=== PATIENT | male | born 1950 | race Caucasian/White ===

== ENCOUNTER → 2016-07-01 | Outpatient (CLI) | payer MEDICARE ==
[2016-07-01 15:01] LABS: RBC, Body Fluid 272 /uL; Synovial Crystal Source Left Knee
== END | disposition home or self-care (01) ==
LOC: LABWHC1 12:21
PROVIDERS: ATTEND Orthopaedic Surgery
DX: M25.562 Pain in left knee (principal); M17.12 Unilateral primary osteoarthritis, left knee
CPT/HCPCS: 89050; 89060

== ENCOUNTER 2017-06-23 12:24 | Day surgery (SDC) | payer MEDICARE ==
[2017-06-19 08:52] VITALS: BMI 45.0
[~2017-06-23 12:24] MED LIST: LACTATED RINGERS 1,000 ML IV SCH; LIDOCAINE 1% 20 ML VIAL (10MG/ML) FOR IV START INTRADERMA PRN
[2017-06-23] MEDS: PHENYLEPHRINE 10% OPHTH DROPS 5 ML BTL OP ONE ×3 (13:52→13:58)
[2017-06-23] MEDS: CYCLOPENTOLATE 1% OPHTH SOLN 2 ML BTL OP ONE ×3 (14:01→14:07)
[2017-06-23 14:06] VITALS: TEMP 97.6
[2017-06-23] MEDS ORDERED: SODIUM CHLORIDE 0.9% 500 ML IV ONE ×2 (14:06→14:49)
[2017-06-23] MEDS: FLURBIPROFEN 0.03% OPHTH DROPS 2.5 ML BTL OP ONE ×3 (14:10→14:16)
[2017-06-23 14:35] LABS: Glucose,Whole Blood 160 mg/dL (75-99)
[2017-06-23] MEDS ORDERED: LIDOCAINE 1% INJ 10MG/ML (20 ML MDV) ONE (14:49)
[2017-06-23] MEDS ORDERED: PROPOFOL 10 MG/ML 20 ML VIAL IV ONE (14:49)
[2017-06-23] MEDS ORDERED: EPINEPHrine (PF) 0.5 ML in BALANCED SALT IRRIG SOLN COMB2 500 ML IRRIGATION ONE (14:53)
[2017-06-23] MEDS ORDERED: BALANCED SALT IRRIG SOLN COMB2 15 ML IRRIG.SOLN INTRAOCULA ONE (14:58)
[2017-06-23] MEDS ORDERED: HYALURONATE SODIUM INTRAOCULAR 1 EACH SYRINGE (10MG/ML) INTRAOCULA ONE (14:58)
[2017-06-23] MEDS ORDERED: NEOMYCIN-POLYMYXIN-DEXAMETH OINT 3.5 GM TUBE RIGHT EYE ONE (14:58)
--- NOTE | 2017-06-23 15:23 | P.OP ---
Date of Procedure: 06/23/17 Procedure(s) Performed: PREOPERATIVE DIAGNOSIS: Cataract and glaucoma, right eye. POSTOPERATIVE DIAGNOSIS: Cataract and glaucoma, right eye. OPERATION: Phacoemulsification cataract, lens implant, iStent placement, right eye. DESCRIPTION OF PROCEDURE: The patient was taken to the preoperative holding area. Intravenous Propofol was given so as to bring about adequate sedation. The following mixture was given for local anesthesia: 5 mL of 2% lidocaine, 5 mL of 0.75% Marcaine, and 1 mL of Wydase. Approximately 4 mL was injected in the retrobulbar space of the surgical eye. Additional 1 mL was then directed to the temporal area of the surgical eye. This was performed to allow adequate neurological block of the facial muscles. The patient was revived and then taken into the operative room. The patient was prepped and draped in the usual sterile manner for the operative eye. A lid speculum was put into position. The conjunctiva was resected back from the limbus in the 12 o'clock position. Bleeding was controlled with electrocautery. A #69 blade was then used and a half-thickness scleral incision approximately 1-mm posterior to the limbus was made on bare sclera. This was shelved in the clear cornea using a crescent knife. Next a 15-degree blade was used to make a stab incision at the 3 o' clock position at the corneolimbal interface. Keratome blade was then used and the superior wound was extended into the anterior chamber. Viscoelastic was injected into the anterior chamber and to maintain its form. An iStent was placed in the inferior trabecular meshwork using a hand held gonioprism for guidance. Next, a cystotome was used and a continuous anterior capsulotomy was made without difficulty. Hydrodissection using a blunt cannula and BSS was performed. Phaco probe was then employed and a groove extending from 12 to 6 o' clock in the lens was created. A Albaro wand was used through the stab incision so as to perform a divide and conquer technique. Next an irrigation aspiration probe was utilized and any residual cortex was removed from the eye. Again, viscoelastic was injected into the anterior chamber. An [place] toric posterior chamber lens implant was placed in the cartridge and injected into the anterior chamber without difficulty. The Sinskey hook was utilized to spin the lens into position and this was again performed without any difficulty. The irrigation and aspiration probe was again employed and any residual viscoelastic was removed from the eye. Then BSS was injected into the limbal stab incision and the anterior chamber re-inflated. The conjunctiva was reapproximated using electrocautery. One drop of 0.25% Timoptic was placed over the corneal along with TobraDex ophthalmic ointment. Two sterile patches and a Mike eye shield were taped into position. The patient was transported to the recovery room in stable condition. Pathology: none sent Condition: stable Disposition: same day
[2017-06-23 15:28] LABS: Glucose,Whole Blood 146 mg/dL (75-99)
[2017-06-23 15:32] VITALS: RESP 18
[2017-06-23 15:55] VITALS: BP 153/64; PULSE 91
[2017-06-23] MEDS ORDERED: TIMOLOL 0.5% OPHTH DROPS 5 ML BTL OP ONE (23:00)
[2017-06-23] MEDS ORDERED: GENTAMICIN/PREDNISOL AC OPHTH OINT 3.5GM OPHTHALMIC ONE (23:00)
[2017-06-23] MEDS ORDERED: BUPIVACAINE (PF) 0.75% 5 ML, HYALURONIDASE, HUMAN RECOMB 150 UNIT, LIDOCAINE 2% (PF) 10... MISCELLANE ONE ×3 (23:00)
== END 2017-06-23 16:01 | disposition home or self-care (01) ==
LOC: OR 12:24
PROVIDERS: ATTEND Ophthalmology
DX: E11.36 Type 2 diabetes mellitus with diabetic cataract (principal); H40.059 Ocular hypertension, unspecified eye; H04.129 Dry eye syndrome of unspecified lacrimal gland; I13.2 Hypertensive heart and chronic kidney disease with heart failure and with stage 5 chronic kidney disease, or end stage renal disease; E11.22 Type 2 diabetes mellitus with diabetic chronic kidney disease; N18.6 End stage renal disease; I50.9 Heart failure, unspecified; Z99.2 Dependence on renal dialysis; Z79.4 Long term (current) use of insulin; Z96.41 Presence of insulin pump (external) (internal); I48.91 Unspecified atrial fibrillation; Z79.01 Long term (current) use of anticoagulants; E78.5 Hyperlipidemia, unspecified; I25.2 Old myocardial infarction; N40.0 Benign prostatic hyperplasia without lower urinary tract symptoms; G47.33 Obstructive sleep apnea (adult) (pediatric); Z99.89 Dependence on other enabling machines and devices; I49.9 Cardiac arrhythmia, unspecified; Z79.02 Long term (current) use of antithrombotics/antiplatelets; Z79.899 Other long term (current) drug therapy; Z88.5 Allergy status to narcotic agent; Z88.0 Allergy status to penicillin; Z88.8 Allergy status to other drugs, medicaments and biological substances
CPT/HCPCS: 66984; 66183; V2787; C1780; C1783; J3470; J2001 ×2; J0171; J2704

== ENCOUNTER 2018-11-21 17:50 | Emergency (ER) | payer MEDICARE, OTHER ==
[2018-11-21 18:21] VITALS: BP 127/73; PULSE 93; RESP 18; TEMP 98.1
[2018-11-21] MEDS ORDERED: PANTOPRAZOLE 40 MG/10 ML VIAL IVP STA (19:18)
[2018-11-21 19:26] LABS: Basophils # (A) 0.3 k/uL (0-0.2); Basophils % (A) 2 %; Eosinophils # (A) 0.4 k/uL (0-0.7); Eosinophils % (A) 4 %; HCT 35.8 % (39.0-53.0); HGB 11.8 gm/dL (13.0-17.5); Lymphocytes # (A) 1.5 k/uL (1.0-4.8); Lymphocytes % (A) 12 %; MCH 31.9 pg (25.0-35.0); MCV 96.6 fL (80.0-100.0); Mean Platelet Volume 8.3; Monocytes # (A) 0.6 k/uL (0-1.0); Monocytes % (A) 5 %; Neutrophils # (A) 9.1 k/uL (1.3-7.7); Neutrophils % (A) 75 %; Platelet Count 224 k/uL (150-450); RBC 3.71 m/uL (4.30-5.90); WBC 12.1 k/uL (3.8-10.6)
[2018-11-21 19:37] LABS: Albumin 3.8 g/dL (3.5-5.0); Calcium 8.5 mg/dL (8.4-10.2); Potassium 4.2 mmol/L (3.5-5.1); Total Bilirubin 0.4 mg/dL (0.2-1.3)
[2018-11-21 19:43] LABS: INR 1.1 (<1.2); Partial Thromboplastin Time 27.8 sec (22.0-30.0); Prothrombin Time 11.9 sec (9.0-12.0)
--- NOTE | 2018-11-21 22:37 | ED ---
General Adult HPI - General Chief complaint: GI Bleed Stated complaint: TARRY STOOL, VOMITING BLACK, ABDOMINAL PAIN Time Seen by Provider: 11/21/18 18:37 Source: patient, family Mode of arrival: wheelchair Limitations: no limitations - History of Present Illness Initial comments: 68-year-old male patient with past medical history significant for congestive heart failure to department today for evaluation of dark tarry stools and vomiting. Patient states the last 4-5 days he has noticed dark colored stools. States that he did have a episode of vomiting which could've been coffee ground. He denies any gross hematemesis, or hematochezia. He denies fever or chills. States he is having some mild discomfort to the left side of his abdomen today. He denies any tenderness over or around his peritoneal dialysis catheter insertion site. Denies fever or chills. Patient states he does have some dyspnea but this is usual for him with his history of congestive heart failure. Denies any increased swelling to the lower extremities. He denies any dizziness or weakness. Denies any history of significant anemia. Denies history of blood transfusion. Denies history of GI bleed. Patient does take coumadin, plavix and aspirin. Patient denies any recent rash, back pain, numbness, tingling, dizziness, weakness, hematuria, dysuria, urinary urgency, urinary frequency, headache, visual changes, or any other complaints. - Related Data Home Medications Medication Instructions Recorded Confirmed Alirocumab [Praluent Pen] 150 mg SQ Q14D 06/19/17 06/23/17 Allopurinol [Zyloprim] 100 mg PO DAILY 06/19/17 06/23/17 Alpha Lipoic Acid 600 mg PO HS 06/19/17 06/23/17 Aspirin EC [Ecotrin Low Dose] 81 mg PO DAILY 06/19/17 06/23/17 B Complex W-C No.20/Folic Acid 1 tab PO DAILY 06/19/17 06/23/17 [Renal Caps Softgel] Calcitriol 0.5 mcg PO MOWEFR 06/19/17 06/23/17 Clopidogrel [Plavix] 75 mg PO DAILY 06/19/17 06/23/17 Cyclobenzaprine [Flexeril] 10 mg PO HS 06/19/17 06/23/17 Ergocalciferol (Vitamin D2) 50,000 unit PO SUTUTHSA 06/19/17 06/23/17 [Vitamin D2] Furosemide [Lasix] 40 mg PO BID 06/19/17 06/23/17 Humulin Pump 0 units INJ CONTINUOUS 06/19/17 06/23/17 Isosorbide Mononitrate [Isosorbide 30 mg PO HS 06/19/17 06/23/17 Mononitrate ER] Latanoprost [Xalatan 0.005%] 1 drop BOTH EYES HS 06/19/17 06/23/17 Magnesium Oxide [Mag-Ox] 400 mg PO DAILY 06/19/17 06/23/17 Metoprolol Succinate [Toprol Xl] 50 mg PO DAILY 06/19/17 06/23/17 Metoprolol Succinate [Toprol Xl] 100 mg PO DAILY 06/19/17 06/23/17 Paris-3 Acid Ethyl Esters [Lovaza] 2 gm PO BID 06/19/17 06/23/17 Tamsulosin HCl [Flomax] 0.4 mg PO BID 06/19/17 06/23/17 Warfarin [Coumadin] 5 mg PO SUMOWETHFR 06/19/17 06/23/17 Warfarin [Coumadin] 7.5 mg PO TUSA 06/19/17 06/23/17 Allergies Allergy/AdvReac Type Severity Reaction Status Date / Time codeine Allergy Unknown Verified 11/21/18 18:21 Childhood Penicillins Allergy Unknown Verified 11/21/18 18:21 Childhood Orkaqkg-Yam-Egy Reductase Allergy SEVERE Verified 11/21/18 18:21 Inhibitor MUSCLE CRAMPING Review of Systems ROS Statement: Those systems with pertinent positive or pertinent negative responses have been documented in the HPI. ROS Other: All systems not noted in ROS Statement are negative. Past Medical History Past Medical History: Cancer, Heart Failure, Diabetes Mellitus, Dialysis, Eye Disorder, Hyperlipidemia, Hypertension, Myocardial Infarction ([place]), Prostate Disorder, Renal Disease, Sleep Apnea/CPAP/BIPAP Additional Past Medical History / Comment(s): CANCER-KIDNEY -LEFT, LEFT ARM SKIN CANCER. ENLARGED PROSTATE. HEMODIALYSIS M W F. USES C PAP AT NIGHT. RT CATARACT Last Myocardial Infarction Date:: 2005 History of Any Multi-Drug Resistant Organisms: None Reported Past Surgical History: Heart Catheterization With Stent, Orthopedic Surgery Additional Past Surgical History / Comment(s): REMOVAL LT KIDNEY R/T CANCER. HEART CATH WITH 3 STENTS 06/08/17. HEMODIALYSIS PORT INSERTION-06/09/17. LOOP RECORDER INSERTION AND REMOVAL. COLONOSCOPY. REMOVAL MELANOMA RT ARM. LT CATARACT SURGERY. 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 Vital signs upon presentation are temperature 98.1F, pulse 93, respirations 18, blood pressure 127/73, pulse ox 97% on room air.) Eye exam: Present: normal appearance, PERRL, EOMI. Absent: scleral icterus, conjunctival injection, periorbital swelling ENT exam: Present: normal exam, normal oropharynx, mucous membranes moist Respiratory exam: Present: normal lung sounds bilaterally. Absent: respiratory distress, wheezes, rales, rhonchi, stridor Cardiovascular Exam: Present: regular rate, normal rhythm, normal heart sounds. Absent: systolic murmur, diastolic murmur, rubs, gallop, clicks GI/Abdominal exam: Present: soft, normal bowel sounds. Absent: distended, tenderness, guarding, rebound, rigid Rectal exam: Present: black stool Neurological exam: Present: alert, oriented X3, CN II-XII intact Psychiatric exam: Present: normal affect, normal mood Skin exam: Present: warm, dry, intact, normal color. Absent: rash Course Vital Signs 11/21/18 18:16 Temperature 98.1 F Pulse Rate 93 Respiratory 18 Rate Blood Pressure 127/73 O2 Sat by Pulse 97 Oximetry EKG Findings - EKG Comments: EKG Findings:: EKG obtained at 1901 shows atrial fibrillation with a ventricular rate of 90, QRS duration 78, QT 366, QTc 447. No evidence of ST elevation or depression. Medical Decision Making - Medical Decision Making 68-year-old male patient presents to the emergency department today for evaluation of dark stools, concern for GI bleed. Physical examination did reveal soft nontender abdomen. Rectal exam was performed and stool sample o btained, this was negative for occult blood. Labs reviewed and did reveal white blood cell count of 12.1. Hemoglobin 11.8. BUN 79, creatinine 9.32. Troponin 0.042. Repeat troponin 0.046. I did review labs from 11/09/2018, hemoglobin was 11.1, BUN 85, creatinine 9.78. Patient is not currently having any shortness of breath or chest pain. We did discuss new medication phosphorus binder with iron as a cause for the change in his stool color. He does feel comfortable being discharged home at this time. He is instructed to follow-up with his primary care physician for recheck in 1-2 days. Return parameters were discussed in detail. He verbalizes understanding and agrees with this plan. - Lab Data Result diagrams: 11/21/18 18:55 11/21/18 18:55 Lab Results 11/21/18 11/21/18 11/21/18 Range/Units 18:55 18:55 18:55 WBC 12.1 H (3.8-10.6) k/uL RBC 3.71 L (4.30-5.90) m/uL Hgb 11.8 L (13.0-17.5) gm/dL Hct 35.8 L (39.0-53.0) % MCV 96.6 (80.0-100.0) fL MCH 31.9 (25.0-35.0) pg MCHC 33.0 (31.0-37.0) g/dL RDW 14.0 (11.5-15.5) % Plt Count 224 (150-450) k/uL Neutrophils % 75 % Lymphocytes % 12 % Monocytes % 5 % Eosinophils % 4 % Basophils % 2 % Neutrophils # 9.1 H (1.3-7.7) k/uL Lymphocytes # 1.5 (1.0-4.8) k/uL Monocytes # 0.6 (0-1.0) k/uL Eosinophils # 0.4 (0-0.7) k/uL Basophils # 0.3 H (0-0.2) k/uL PT 11.9 (9.0-12.0) sec INR 1.1 (<1.2) APTT 27.8 (22.0-30.0) sec Sodium 139 (137-145) mmol/L Potassium 4.2 (3.5-5.1) mmol/L Chloride 99 (98-107) mmol/L Carbon Dioxide 26 (22-30) mmol/L Anion Gap 14 mmol/L BUN 79 H (9-20) mg/dL Creatinine 9.32 H* (0.66-1.25) mg/dL Est GFR (CKD-EPI)AfAm 6 (>60 ml/min/1.73 sqM) Est GFR (CKD-EPI)NonAf 5 (>60 ml/min/1.73 sqM) Glucose 154 H (74-99) mg/dL Calcium 8.5 (8.4-10.2) mg/dL Total Bilirubin 0.4 (0.2-1.3) mg/dL AST 48 (17-59) U/L ALT 54 (21-72) U/L Alkaline Phosphatase 147 H (38-126) U/L Troponin I (0.000-0.034) ng/mL Total Protein 7.0 (6.3-8.2) g/dL Albumin 3.8 (3.5-5.0) g/dL Stool Occult Blood (Negative) 11/21/18 11/21/18 11/21/18 Range/Units 18:55 20:15 21:25 WBC (3.8-10.6) k/uL RBC (4.30-5.90) m/uL Hgb (13.0-17.5) gm/dL Hct (39.0-53.0) % MCV (80.0-100.0) fL MCH (25.0-35.0) pg MCHC (31.0-37.0) g/dL RDW (11.5-15.5) % Plt Count (150-450) k/uL Neutrophils % % Lymphocytes % % Monocytes % % Eosinophils % % Basophils % % Neutrophils # (1.3-7.7) k/uL Lymphocytes # (1.0-4.8) k/uL Monocytes # (0-1.0) k/uL Eosinophils # (0-0.7) k/uL Basophils # (0-0.2) k/uL PT (9.0-12.0) sec INR (<1.2) APTT (22.0-30.0) sec Sodium (137-145) mmol/L Potassium (3.5-5.1) mmol/L Chloride (98-107) mmol/L Carbon Dioxide (22-30) mmol/L Anion Gap mmol/L BUN (9-20) mg/dL Creatinine (0.66-1.25) mg/dL Est GFR (CKD-EPI)AfAm (>60 ml/min/1.73 sqM) Est GFR (CKD-EPI)NonAf (>60 ml/min/1.73 sqM) Glucose (74-99) mg/dL Calcium (8.4-10.2) mg/dL Total Bilirubin (0.2-1.3) mg/dL AST (17-59) U/L ALT (21-72) U/L Alkaline Phosphatase (38-126) U/L Troponin I 0.042 H* 0.046 H* (0.000-0.034) ng/mL Total Protein (6.3-8.2) g/dL Albumin (3.5-5.0) g/dL Stool Occult Blood Negative (Negative) Disposition Clinical Impression: Vomiting, Dark stools Disposition: HOME SELF-CARE Condition: Good Instructions (If sedation given, give patient instructions): Acute Nausea and Vomiting (ED) Additional Instructions: Follow-up through primary care physician for recheck in 1-2 days. Return to the emergency department immediately for any new, worsening, or concerning symptoms. Is patient prescribed a controlled substance at d/c from ED?: No Referrals: Jean Gates DO [Primary Care Provider] - 1-2 days Time of Disposition: 22:37
== END 2018-11-21 22:45 | disposition home or self-care (01) ==
LOC: EC 17:50
DX: R11.10 Vomiting, unspecified (principal); R19.5 Other fecal abnormalities; R10.9 Unspecified abdominal pain; I11.0 Hypertensive heart disease with heart failure; I50.9 Heart failure, unspecified; E11.9 Type 2 diabetes mellitus without complications; I25.2 Old myocardial infarction; G47.30 Sleep apnea, unspecified; Z79.01 Long term (current) use of anticoagulants; Z79.02 Long term (current) use of antithrombotics/antiplatelets; Z79.82 Long term (current) use of aspirin; Z79.4 Long term (current) use of insulin; Z79.899 Other long term (current) drug therapy; Z88.0 Allergy status to penicillin; Z88.5 Allergy status to narcotic agent; Z88.8 Allergy status to other drugs, medicaments and biological substances; Z87.891 Personal history of nicotine dependence; Z95.5 Presence of coronary angioplasty implant and graft; Z85.528 Personal history of other malignant neoplasm of kidney; Z90.5 Acquired absence of kidney; Z85.828 Personal history of other malignant neoplasm of skin; Z99.2 Dependence on renal dialysis
CPT/HCPCS: 36415; 80053; 82272; 84484; 85025; 85610; 85730; 93005; 99285

== ENCOUNTER → 2018-11-24 | Outpatient (CLI) | payer MEDICARE ==
--- NOTE | 2018-11-24 12:14 | FL ---
ESOPHOGRAM. HISTORY: Dysphagia Esophagram was performed per the air contrast technique. The patient swallowed barium and effervesce nt crystals without difficulty or delay. Esophageal peristalsis and motility appear to be within normal limits. There is no evidence for filling defect, mass or diverticulum. No hiatal hernia seen. Subsequently single contrast cervical esophagram was performed which fails demonstrate evidence for a spiration penetration or mass. IMPRESSION: Unremarkable study.
== END | disposition home or self-care (01) ==
LOC: RADUSWWP 09:53
PROVIDERS: ATTEND Otolaryngology
DX: R13.10 Dysphagia, unspecified (principal)
CPT/HCPCS: 74220

== ENCOUNTER 2019-05-07 19:40 | Inpatient (IN) | payer MEDICARE ==
[2019-05-07] MEDS ORDERED: SODIUM CHLORIDE 0.9% 500 ML 500 ML IV SCH (20:15)
[2019-05-07 20:42] LABS: Basophils % (A) 0 %; Eosinophils # (A) 0.1 k/uL (0-0.7); Eosinophils % (A) 1 %; HCT 35.2 % (39.0-53.0); HGB 11.4 gm/dL (13.0-17.5); Lymphocytes # (A) 0.6 k/uL (1.0-4.8); Lymphocytes % (A) 3 %; MCH 31.6 pg (25.0-35.0); MCHC 32.5 g/dL (31.0-37.0); MCV 97.4 fL (80.0-100.0); Monocytes # (A) 0.9 k/uL (0-1.0); Monocytes % (A) 4 %; Neutrophils # (A) 18.9 k/uL (1.3-7.7); Neutrophils % (A) 91 %; Platelet Count 258 k/uL (150-450); RBC 3.61 m/uL (4.30-5.90); RDW 13.3 % (11.5-15.5); WBC 20.8 k/uL (3.8-10.6)
--- NOTE | 2019-05-07 20:47 | ED ---
General Adult HPI - General Chief complaint: Fever Stated complaint: Fever, Nausea/vomiting Time Seen by Provider: 05/07/19 19:58 Source: patient Mode of arrival: ambulatory Limitations: no limitations - History of Present Illness Initial comments: 69-year-old male patient with past medical history significant for renal failure with current peritoneal dialysis, diabetes mellitus presents to the emergency department today for evaluation of fever. Patient states he has been feeling run down and chilled over the last 2-3 days. States it checked his temperature today was 102F at home. States he did take Tylenol around 5 PM. Patient is admitting to some lower abdominal discomfort. He states he is having some urinary frequency. He denies any constipation or diarrhea. He did have one episode of vomiting prior to coming in. Patient denies any recent rash, fever, chills, cough, shortness of breath, chest pain, constipation, back pain, numbne ss, tingling, dizziness, weakness, headache, visual changes, or any other complaints. He denies any recent travel or contact with anyone who is ill/traveled/been diagnosed with COVID-19. - Related Data Home Medications Medication Instructions Recorded Confirmed Alirocumab [Praluent Pen] 150 mg SQ Q14D 06/19/17 06/23/17 Allopurinol [Zyloprim] 100 mg PO DAILY 06/19/17 06/23/17 Alpha Lipoic Acid 600 mg PO HS 06/19/17 06/23/17 Aspirin EC [Ecotrin Low Dose] 81 mg PO DAILY 06/19/17 06/23/17 B Complex W-C No.20/Folic Acid 1 tab PO DAILY 06/19/17 06/23/17 [Renal Caps Softgel] Calcitriol 0.5 mcg PO MOWEFR 06/19/17 06/23/17 Clopidogrel [Plavix] 75 mg PO DAILY 06/19/17 06/23/17 Cyclobenzaprine [Flexeril] 10 mg PO HS 06/19/17 06/23/17 Ergocalciferol (Vitamin D2) 50,000 unit PO SUTUTHSA 06/19/17 06/23/17 [Vitamin D2] Furosemide [Lasix] 40 mg PO BID 06/19/17 06/23/17 Humulin Pump 0 units INJ CONTINUOUS 06/19/17 06/23/17 Isosorbide Mononitrate [Isosorbide 30 mg PO HS 06/19/17 06/23/17 Mononitrate ER] Latanoprost [Xalatan 0.005%] 1 drop BOTH EYES HS 06/19/17 06/23/17 Magnesium Oxide [Mag-Ox] 400 mg PO DAILY 06/19/17 06/23/17 Metoprolol Succinate [Toprol Xl] 50 mg PO DAILY 06/19/17 06/23/17 Metoprolol Succinate [Toprol Xl] 100 mg PO DAILY 06/19/17 06/23/17 [place]-3 Acid Ethyl Esters [Lovaza] 2 gm PO BID 06/19/17 06/23/17 Tamsulosin HCl [Flomax] 0.4 mg PO BID 06/19/17 06/23/17 Warfarin [Coumadin] 5 mg PO SUMOWETHFR 06/19/17 06/23/17 Warfarin [Coumadin] 7.5 mg PO TUSA 06/19/17 06/23/17 Allergies Allergy/AdvReac Type Severity Reaction Status Date / Time codeine Allergy Unknown Verified 05/07/19 19:53 Childhood Penicillins Allergy Unknown Verified 05/07/19 19:53 Childhood Vkpdywy-Tfg-Jup Reductase Allergy SEVERE Verified 05/07/19 19:53 Inhibitor MUSCLE CRAMPING Review of Systems ROS Statement: Those systems with pertinent positive or pertinent negative responses have been documented in the HPI. ROS Other: All systems not noted in ROS Statement are negative. Past Medical History Past Medical History: Cancer, Heart Failure, Diabetes Mellitus, Dialysis, Eye Disorder, Hyperlipidemia, Hypertension, Myocardial Infarction ([place]), Prostate Disorder, Renal Disease, Sleep Apnea/CPAP/BIPAP Additional Past Medical History / Comment(s): CANCER-KIDNEY -LEFT, LEFT ARM SKIN CANCER. ENLARGED PROSTATE. HEMODIALYSIS M W F. USES C PAP AT NIGHT. RT CATARACT Last Myocardial Infarction Date:: 2005 History of Any Multi-Drug Resistant Organisms: None Reported Past Surgical History: Heart Catheterization With Stent, Orthopedic Surgery Additional Past Surgical History / Comment(s): REMOVAL LT KIDNEY R/T CANCER. H EART CATH WITH 3 STENTS 06/08/17. HEMODIALYSIS PORT INSERTION-06/09/17. LOOP RECORDER INSERTION AND REMOVAL. COLONOSCOPY. REMOVAL MELANOMA RT ARM. LT CATARACT SURGERY. 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 Vital signs upon presentation are temperature 102.3F, pulse 100, respirations 20, blood pressure 135/73, pulse ox 95% on room air.) Eye exam: Present: normal appearance, PERRL, EOMI. Absent: scleral icterus, conjunctival injection, periorbital swelling ENT exam: Present: normal exam, normal oropharynx, mucous membranes moist Respiratory exam: Present: normal lung sounds bilaterally. Absent: respiratory distress, wheezes, rales, rhonchi, stridor Cardiovascular Exam: Present: regular rate, normal rhythm, normal heart sounds. Absent: systolic murmur, diastolic murmur, rubs, gallop, clicks GI/Abdominal exam: Present: soft, tenderness (Right lower quadrant tenderness), normal bowel sounds. Absent: distended, guarding, rebound, rigid Neurological exam: Present: alert, oriented X3, CN II-XII intact Psychiatric exam: Present: normal affect, normal mood Skin exam: Present: warm, dry, intact, normal color. Absent: rash Course Vital Signs 05/07/19 05/07/19 05/07/19 19:50 20:33 22:29 Temperature 102.3 F H 101.2 F H 101 F H Pulse Rate 100 99 108 H Respiratory 20 20 22 Rate Blood Pressure 135/73 136/68 175/103 O2 Sat by Pulse 95 97 97 Oximetry 05/07/19 05/07/19 23:06 23:34 Temperature 102.3 F H Pulse Rate 98 100 Respiratory 20 20 Rate Blood Pressure 180/104 152/82 O2 Sat by Pulse 96 95 Oximetry EKG Findings - EKG Comments: EKG Findings:: EKG obtained at 2019 shows atrial fibrillation with a ventricular rate of 95, QR tenriism 74, QT 344, QTC 432. No evidence of ST elevation or depression. Medical Decision Making - Medical Decision Making 69 year-old male patient presents medical history significant for kidney failure with peritoneal dialysis presents to the emergency department today for eval uation of fever. Patient states he's been having chills for the last couple of days and noticed the temperature was high today. Patient states he is just feeling generally run down. He is also reporting suprapubic and right lower quadrant abdominal pain. Physical examination did reveal tenderness over the suprapubic and right lower quadrant region. Remainder of abdomen was soft and nontender. Lungs are clear to auscultation with good air movement. No pharyngeal erythema. Labs reviewed and did reveal elevated white blood cell count at 20.8, predominantly neutrophils. Lactic acid was negative. BUN and creatinine were elevated consistent with his history of kidney failure. Chest x-ray showed no acute cardio pulmonary process. He was negative for influenza and RSV. CT abdomen and pelvis was obtained and showed no acute abnormalities. We will start treatment for presumptive bacterial peritonitis. Infectious disease and nephrology will be consulted. Patient is agreeable with this plan. - Lab Data Result diagrams: 05/07/19 20:16 05/07/19 20:16 Lab Results 05/07/19 05/07/19 05/07/19 Range/Units 20:15 20:16 20:16 WBC 20.8 H (3.8-10.6) k/uL RBC 3.61 L (4.30-5.90) m/uL Hgb 11.4 L (13.0-17.5) gm/dL Hct 35.2 L (39.0-53.0) % MCV 97.4 (80.0-100.0) fL MCH 31.6 (25.0-35.0) pg MCHC 32.5 (31.0-37.0) g/dL RDW 13.3 (11.5-15.5) % Plt Count 258 (150-450) k/uL Neutrophils % 91 % Lymphocytes % 3 % Monocytes % 4 % Eosinophils % 1 % Basophils % 0 % Neutrophils # 18.9 H (1.3-7.7) k/uL Lymphocytes # 0.6 L (1.0-4.8) k/uL Monocytes # 0.9 (0-1.0) k/uL Eosinophils # 0.1 (0-0.7) k/uL Basophils # 0.0 (0-0.2) k/uL PT 14.4 H (9.0-12.0) sec INR 1.4 H (<1.2) APTT 29.8 (22.0-30.0) sec Sodium (137-145) mmol/L Potassium (3.5-5.1) mmol/L Chloride (98-107) mmol/L Carbon Dioxide (22-30) mmol/L Anion Gap mmol/L BUN (9-20) mg/dL Creatinine (0.66-1.25) mg/dL Est GFR (CKD-EPI)AfAm (>60 ml/min/1.73 sqM) Est GFR (CKD-EPI)NonAf (>60 ml/min/1.73 sqM) Glucose (74-99) mg/dL Plasma Lactic Acid Rip (0.7-2.0) mmol/L Calcium (8.4-10.2) mg/dL Total Bilirubin (0.2-1.3) mg/dL AST (17-59) U/L ALT (4-49) U/L Alkaline Phosphatase (38-126) U/L Total Protein (6.3-8.2) g/dL Albumin (3.5-5.0) g/dL Urine Color Yellow Urine Appearance Cloudy (Clear) Urine pH 6.0 (5.0-8.0) Ur Specific [place] 1.018 (1.001-1.035) Urine Protein 2+ H (Negative) Urine Glucose (UA) 1+ H (Negative) Urine Ketones Negative (Negative) Urine Blood Moderate H (Negative) Urine Nitrite Negative (Negative) Urine Bilirubin Negative (Negative) Urine Urobilinogen <2.0 (<2.0) mg/dL Ur Leukocyte Esterase Trace H (Negative) Urine RBC 1 (0-5) /hpf Urine WBC 4 (0-5) /hpf Ur Squamous Epith Cells <1 (0-4) /hpf Amorphous Sediment Rare H (None) /hpf Urine Bacteria Rare H (None) /hpf Influenza Type A RNA (Not Detectd) Influenza Type B (PCR) (Not Detectd) RSV (PCR) (Negative) 05/07/19 05/07/19 05/07/19 Range/Units 20:16 20:16 20:32 WBC (3.8-10.6) k/uL RBC (4.30-5.90) m/uL Hgb (13.0-17.5) gm/dL Hct (39.0-53.0) % MCV (80.0-100.0) fL MCH (25.0-35.0) pg MCHC (31.0-37.0) g/dL RDW (11.5-15.5) % Plt Count (150-450) k/uL Neutrophils % % Lymphocytes % % Monocytes % % Eosinophils % % Basophils % % Neutrophils # (1.3-7.7) k/uL Lymphocytes # (1.0-4.8) k/uL Monocytes # (0-1.0) k/uL Eosinophils # (0-0.7) k/uL Basophils # (0-0.2) k/uL PT (9.0-12.0) sec INR (<1.2) APTT (22.0-30.0) sec Sodium 132 L (137-145) mmol/L Potassium 4.1 (3.5-5.1) mmol/L Chloride 94 L (98-107) mmol/L Carbon Dioxide 27 (22-30) mmol/L Anion Gap 11 mmol/L BUN 71 H (9-20) mg/dL Creatinine 7.08 H* (0.66-1.25) mg/dL Est GFR (CKD-EPI)AfAm 8 (>60 ml/min/1.73 sqM) Est GFR (CKD-EPI)NonAf 7 (>60 ml/min/1.73 sqM) Glucose 215 H (74-99) mg/dL Plasma Lactic Acid Rip 1.9 (0.7-2.0) mmol/L Calcium 9.4 (8.4-10.2) mg/dL Total Bilirubin 0.6 (0.2-1.3) mg/dL AST 55 (17-59) U/L ALT 45 (4-49) U/L Alkaline Phosphatase 115 (38-126) U/L Total Protein 6.5 (6.3-8.2) g/dL Albumin 3.4 L (3.5-5.0) g/dL Urine Color Urine Appearance (Clear) Urine pH (5.0-8.0) Ur Specific [place] (1.001-1.035) Urine Protein (Negative) Urine Glucose (UA) (Negative) Urine Ketones (Negative) Urine Blood (Negative) Urine Nitrite (Negative) Urine Bilirubin (Negative) Urine Urobilinogen (<2.0) mg/dL Ur Leukocyte Esterase (Negative) Urine RBC (0-5) /hpf Urine WBC (0-5) /hpf Ur Squamous Epith Cells (0-4) /hpf Amorphous Sediment (None) /hpf Urine Bacteria (None) /hpf Influenza Type A RNA Not Detected (Not Detectd) Influenza Type B (PCR) Not Detected (Not Detectd) RSV (PCR) Negative (Negative) - Radiology Data Radiology results: report reviewed, image reviewed Two-view x-ray of the chest is obtained. Report was reviewed in its entirety. Impression by Dr. Spear shows no acute cardio pulmonary process. CT abdomen and pelvis without contrast was obtained. Report was reviewed in its entirety. Impression by Dr. Dominguez shows mild to moderate abdominal ascites. Ascites appears new compared to old exam. There is right sided renal vascular calcifications that are new compared to old exam. Gallstone unchanged. Right lower quadrant abdominal catheter noted. Mild subcutaneous edema over the lower lumbar spine unchanged. Disposition Clinical Impression: Sepsis, Bacterial peritonitis Disposition: ADMITTED IP TO THIS HOSP Condition: Serious
[2019-05-07 20:51] LABS: Albumin 3.4 g/dL (3.5-5.0); Calcium 9.4 mg/dL (8.4-10.2); Potassium 4.1 mmol/L (3.5-5.1); Total Bilirubin 0.6 mg/dL (0.2-1.3); Total Protein 6.5 g/dL (6.3-8.2)
--- NOTE | 2019-05-07 20:51 | XR ---
EXAMINATION TYPE: XR chest 2V DATE OF EXAM: 05/07/2019 COMPARISON: 01/15/2015 HISTORY: Fever, nausea and vomiting TECHNIQUE: Frontal and lateral views of the chest are obtained. FINDINGS: There is no focal air space opacity, pleural effusion, or pneumothorax seen. The cardiac silhouette size is enlarged. Lead from a left-sided cardiac device appears abandon with the cardiac device no longer visualized. Possible coronary artery stent. The osseous structures are intact. Mild multilevel degenerative change of the spine. IMPRESSION: No acute cardiopulmonary process.
[2019-05-07 20:58] LABS: INR 1.4 (<1.2); Partial Thromboplastin Time 29.8 sec (22.0-30.0); Prothrombin Time 14.4 sec (9.0-12.0)
[2019-05-07 21:21] LABS: Amorphous Sediment,Urine Rare /hpf; Appearance,Urine Cloudy (Clear); Bacteria,Urine Rare /hpf; Bilirubin,Urine Negative (Negative); Blood,Urine Moderate (Negative); Color,Urine Yellow; Glucose,Urine (UA) 1+ (Negative); Ketones,Urine Negative (Negative); Leukocyte Esterase,Urine Trace (Negative); Nitrite,Urine Negative (Negative); Protein,Urine 2+ (Negative); RBC,Urine 1 /hpf (0-5); Specific Gravity,Urine 1.018 (1.001-1.035); Squamous Epithelial Cell,Urine <1 /hpf (0-4); Urobilinogen,Urine <2.0 mg/dL (<2.0); WBC,Urine 4 /hpf (0-5)
[2019-05-07] MEDS ORDERED: MORPHINE SULFATE 2 MG/ML SYRINGE IVP STA (22:26)
--- NOTE | 2019-05-07 22:43 | CT ---
EXAMINATION TYPE: CT abdomen pelvis wo con DATE OF EXAM: 05/07/2019 COMPARISON: 01/15/2015 HISTORY: Abdominal pain, fever and weakness. History of renal cancer. CT DLP: 2257.2 mGycm Automated exposure control for dose reduction was used. The lung bases are clear of consolidation. Heart size is normal. There is no pericardial effusion. Liver shows no focal defect. Spleen is intact. There is no evidence of a pancreatic mass. There is a 1.5 cm calcified gallstone. Bile ducts are not dilated. Gallbladder has normal size. There is no adrenal mass. There are clips from left side nephrectomy. The right kidney shows some vas cular calcification. There is no hydronephrosis. Ureter is not dilated. There is mild right side susan nephric fat stranding. There is mild abdominal ascites fluid around the liver and spleen. There is fl uid in the paracolic gutters and to a small extent in the pelvis. Bladder distends smoothly. There is mild prostatic calcification. There is no inguinal hernia. There is no evidence of a pelvic mass. There is no mesenteric edema. There is no evidence of a bowel obstruction. There is no sign of free a ir. There is catheter in the right lower quadrant that could be dialysis catheter. There is no atroph y seen of the right kidney. Lumbar vertebra have normal alignment. There is no compression fracture. Disc spaces are fairly efrain l. The bony pelvis is intact. IMPRESSION: There is mild to moderate abdominal ascites. Ascites appears new compared to old exam. There are righ t-sided renal vascular calcifications that are new compared to old exam. Gallstone unchanged. Right l ower quadrant abdominal catheter noted. Mild subcutaneous edema over the lower lumbar spine unchanged .
[2019-05-07] MEDS ORDERED: VANCOMYCIN IV PER PHARMACY 1 EACH MISC MISCELLANE PRN (23:16)
[2019-05-07] MEDS ORDERED: NALOXONE 0.4 MG/ML 1 ML VIAL IV PRN (23:17)
[2019-05-07] MEDS ORDERED: ONDANSETRON 4 MG/2 ML VIAL IVP PRN (23:17)
[2019-05-07] MEDS ORDERED: VANCOMYCIN 2,000 MG in SODIUM CHLORIDE 0.9% 500 ML 500 ML IVPB STA (23:19)
[2019-05-07] MEDS ORDERED: ACETAMINOPHEN TAB 500 MG TAB PO STA (23:38)
[2019-05-07] MEDS: HYDROmorphone 0.5 MG/0.5 ML SYRINGE IVP PRN (23:55)
[2019-05-08] MEDS: DIALYSIS (PERIT 1.5%) 2,500 ML 37.5 G/2,500 ML BAG INTRAPERIT SCH ×2 (05:39→18:36)
[2019-05-08] MEDS ORDERED: DIALYSIS (PERIT 1.5%) 2,500 ML 37.5 G/2,500 ML BAG INTRAPERIT SCH (06:00)
[2019-05-08 06:06] LABS: Glucose,Whole Blood 43 mg/dL (75-99)
[2019-05-08 06:37] LABS: Glucose,Whole Blood 78 mg/dL (75-99)
[2019-05-08 06:49] LABS: Appearance,BF Clear; Color,BF Yellow; Nucleated Cells, Body Fluid 10 /uL; RBC, Body Fluid 33 /uL
--- NOTE | 2019-05-08 11:40 | P.HPIM ---
History of Present Illness 69-year-old pleasant male the with end-stage renal disease on peritoneal dialysis came in with complaints of fever chills abdominal pain, chest x-ray did not show pneumonia patient does urinate him a urinalysis did show trace bacteria but not impressive for UTI peritoneal fluid has only 10 nucleated cells did patient is admitted for sepsis secondary to peritonitis from the dialysis catheter patient is on IV vancomycin. Peritoneal fluid cultures were ordered. Review of Systems REVIEW OF SYSTEMS: CONSTITUTIONAL: No fever, no malaise, no fatigue. HEENT: No recent visual problems or hearing problems. Denied any sore throat. CARDIOVASCULAR: No chest pain, orthopnea, PND, no palpitations, no syncope. PULMONARY: No shortness of breath, no cough, no hemoptysis. GASTROINTESTINAL: As mentioned in HPI NEUROLOGICAL: No headaches, no weakness, no numbness. HEMATOLOGICAL: Denies any bleeding or petechiae. GENITOURINARY: Denies any burning micturition, frequency, or urgency. MUSCULOSKELETAL/RHEUMATOLOGICAL: Denies any joint pain, swelling, or any muscle pain. ENDOCRINE: Denies any polyuria or polydipsia. The rest of the 14-point review of systems is negative. Past Medical History Past Medical History: Cancer, Heart Failure, Diabetes Mellitus, Dialysis, Eye Disorder, Hyperlipidemia, Hypertension, Myocardial Infarction ([place]), Prostate Disorder, Renal Disease, Sleep Apnea/CPAP/BIPAP Additional Past Medical History / Comment(s): CANCER-KIDNEY -LEFT, LEFT ARM SKIN CANCER. ENLARGED PROSTATE. HEMODIALYSIS M W F. USES C PAP AT NIGHT. RT CATARACT Last Myocardial Infarction Date:: 2005 History of Any Multi-Drug Resistant Organisms: None Reported Past Surgical History: Heart Catheterization With Stent, Orthopedic Surgery Additional Past Surgical History / Comment(s): REMOVAL LT KIDNEY R/T CANCER. HEART CATH WITH 3 STENTS 06/08/17. HEMODIALYSIS PORT INSERTION-06/09/17. LOOP RECORDER INSERTION AND REMOVAL. COLONOSCOPY. REMOVAL MELANOMA RT ARM. LT CATARACT SURGERY. 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 Past Anesthesia/Blood Transfusion Reactions: No Reported Reaction Date of Last Stent Placement:: 06/08/17 Past Psychological History: No Psychological Hx Reported Smoking Status: Former smoker Past Alcohol Use History: None Reported Past Drug Use History: None Reported - Past Family History Mother Family Medical History: Cancer Brother(s) Family Medical History: Cancer Medications and Allergies Home Medications Medication Instructions Recorded Confirmed Type Alirocumab [Praluent Pen] 150 mg SQ Q14D 06/19/17 06/23/17 History Allopurinol [Zyloprim] 100 mg PO DAILY 06/19/17 06/23/17 History Alpha Lipoic Acid 600 mg PO HS 06/19/17 06/23/17 History Aspirin EC [Ecotrin Low Dose] 81 mg PO DAILY 06/19/17 06/23/17 History B Complex W-C No.20/Folic Acid 1 tab PO DAILY 06/19/17 06/23/17 History [Renal Caps Softgel] Calcitriol 0.5 mcg PO MOWEFR 06/19/17 06/23/17 History Clopidogrel [Plavix] 75 mg PO DAILY 06/19/17 06/23/17 History Cyclobenzaprine [Flexeril] 10 mg PO HS 06/19/17 06/23/17 History Ergocalciferol (Vitamin D2) 50,000 unit PO SUTUTHSA 06/19/17 06/23/17 History [Vitamin D2] Furosemide [Lasix] 40 mg PO BID 06/19/17 06/23/17 History Humulin Pump 0 units INJ CONTINUOUS 06/19/17 06/23/17 History Isosorbide Mononitrate [Isosorbide 30 mg PO HS 06/19/17 06/23/17 History Mononitrate ER] Latanoprost [Xalatan 0.005%] 1 drop BOTH EYES 06/19/17 06/23/17 History Magnesium Oxide [Mag-Ox] 400 mg PO DAILY 06/19/17 06/23/17 History Metoprolol Succinate [Toprol Xl] 50 mg PO DAILY 06/19/17 06/23/17 History Metoprolol Succinate [Toprol Xl] 100 mg PO DAILY 06/19/17 06/23/17 History [place]-3 Acid Ethyl Esters [Lovaza] 2 gm PO BID 06/19/17 06/23/17 History Tamsulosin HCl [Flomax] 0.4 mg PO BID 06/19/17 06/23/17 History Warfarin [Coumadin] 5 mg PO SUMOWETHFR 06/19/17 06/23/17 History Warfarin [Coumadin] 7.5 mg PO TUSA 06/19/17 06/23/17 History Allergies Allergy/AdvReac Type Severity Reaction Status Date / Time codeine Allergy Unknown Verified 05/07/19 19:53 Childhood Penicillins Allergy Unknown Verified 05/07/19 19:53 Childhood Kjisdch-Gxm-Ypg Reductase Allergy SEVERE Verified 05/07/19 19:53 Inhibitor MUSCLE CRAMPING Physical Exam Vitals: Vital Signs Temp Pulse Pulse Resp BP BP Pulse Ox 05/08/19 11:15 94 L 05/08/19 05:40 98.2 F 86 16 156/75 95 05/08/19 04:00 98.4 F 84 16 156/75 95 05/07/19 23:34 102.3 F H 100 20 152/82 95 05/07/19 23:06 98 20 180/104 96 05/07/19 22:29 101 F H 108 H 22 175/103 97 05/07/19 20:33 101.2 F H 99 20 136/68 97 05/07/19 19:50 102.3 F H 100 20 135/73 95 Intake and Output 05/07/19 05/08/19 05/08/19 22:59 06:59 14:59 Intake Total 240 Balance 240 Intake: Oral 240 Other: # Voids 1 Weight 136.078 kg 139.4 kg PHYSICAL EXAMINATION: GENERAL: The patient is alert and oriented x3, not in any acute distress. Well developed, well nourished. Obese HEENT: Pupils are round and equally reacting to light. EOMI. No scleral icterus. No conjunctival pallor. Normocephalic, atraumatic. No pharyngeal erythema. No thyromegaly. CARDIOVASCULAR: S1 and S2 present. No murmurs, rubs, or gallops. PULMONARY: Chest is clear to auscultation, no wheezing or crackles. ABDOMEN: Distended, Tender bit tender normoactive bowel sounds. No palpable organomegaly. Patient has dialysis catheter in the right lower abdomen and an insulin pump on the left side MUSCUL since his catheter in the right lower abdomenOSKELETAL: No joint swelling or deformity. EXTREMITIES: No cyanosis, clubbing, or pedal edema NEUROLOGICAL: Gross neurological examination did not reveal any focal deficits. SKIN: No rashes. Results CBC & Chem 7: 05/07/19 20:16 05/07/19 20:16 Labs: Abnormal Lab Results - Last 24 Hours (Table) 05/07/19 05/07/19 05/07/19 Range/Units 20:15 20:16 20:16 WBC 20.8 H (3.8-10.6) k/uL RBC 3.61 L (4.30-5.90) m/uL Hgb 11.4 L (13.0-17.5) gm/dL Hct 35.2 L (39.0-53.0) % Neutrophils # 18.9 H (1.3-7.7) k/uL Lymphocytes # 0.6 L (1.0-4.8) k/uL PT 14.4 H (9.0-12.0) sec INR 1.4 H (<1.2) Sodium (137-145) mmol/L Chloride (98-107) mmol/L BUN (9-20) mg/dL Creatinine (0.66-1.25) mg/dL Glucose (74-99) mg/dL POC Glucose (mg/dL) (75-99) mg/dL Albumin (3.5-5.0) g/dL Urine Protein 2+ H (Negative) Urine Glucose (UA) 1+ H (Negative) Urine Blood Moderate H (Negative) Ur Leukocyte Esterase Trace H (Negative) Amorphous Sediment Rare H (None) /hpf Urine Bacteria Rare H (None) /hpf 05/07/19 05/08/19 Range/Units 20:16 06:05 WBC (3.8-10.6) k/uL RBC (4.30-5.90) m/uL Hgb (13.0-17.5) gm/dL Hct (39.0-53.0) % Neutrophils # (1.3-7.7) k/uL Lymphocytes # (1.0-4.8) k/uL PT (9.0-12.0) sec INR (<1.2) Sodium 132 L (137-145) mmol/L Chloride 94 L (98-107) mmol/L BUN 71 H (9-20) mg/dL Creatinine 7.08 H* (0.66-1.25) mg/dL Glucose 215 H (74-99) mg/dL POC Glucose (mg/dL) 43 L (75-99) mg/dL Albumin 3.4 L (3.5-5.0) g/dL Urine Protein (Negative) Urine Glucose (UA) (Negative) Urine Blood (Negative) Ur Leukocyte Esterase (Negative) Amorphous Sediment (None) /hpf Urine Bacteria (None) /hpf Microbiology - Last 24 Hours (Table) 05/08/19 06:00 Body Fluid Culture - Preliminary Peritoneal Fluid Thrombosis Risk Factor Assmnt - Choose All That Apply Each Factor Represents 1 point: Obesity (BMI >25) Each Risk Factor Represents 2 Points: Age 61-74 years Thrombosis Risk Factor Assessment Total Risk Factor Score: 3 Thrombosis Risk Factor Assessment Level: Moderate Risk Assessment and Plan Plan: -Peritonitis: Probably secondary to infected dialysis catheter patient on vancomycin which will be continued infectious disease and nephrology were consulted -End-stage renal disease: Hemodialysis dependent -Congestive heart failure ejection fraction is not known patient is not in heart failure exacerbation at this time patient does have some ascites from peritonitis and end-stage renal disease unknown whether patient has systolic dysfunction and diastolic dysfunction -atrial fibrillation on anti-correlation which will be temporally held for now as there is a possibility the return urinalysis catheter need to be removed because of infection. -Hyperlipidemia -Hypertension -Benign prostatic' -Morbid obesity and sleep apnea patient uses CPAP machine which will be continued -type 2 diabetes mellitus with uncontrolled and elevated blood sugars patient will be resumed on his home regimen titrate depending on his insulin requirements -
[2019-05-08 12:11] LABS: Glucose,Whole Blood 175 mg/dL (75-99)
--- NOTE | 2019-05-08 12:25 | P.NPCON ---
History of Present Illness - Reason for Consult Consult date: 05/08/19 end stage renal disease - Chief Complaint Fever with peritoneal dialysis - History of Present Illness This is a 69-year-old male known with ESRD on peritoneal dialysis for 3 years. He came in because of fever of 3 days' duration. He says his have been coughing for 1 year and his primary physician is aware of it. There's been no change in the cough or the last 3 days. He did have some discomfort in the abdomen. He was admitted and started on IV antibiotics. PD cell count is 10 WBCs and 33 red blood cells. His been moving his bowels without any problem. His PD exchanges is via cycler, he uses 12.5 L 2.5 L each exchange and has a last fill of 2.5 L. Additionally he does a midday exchange of 2.5 L. Total ultrafiltration is in the 2 L or less. He does have some urine output. He is known with diabetes, for about 20 years with eye disease and neuropathy He is somewhat obese and has had prostatic disease, COPD. On BiPAP. Past Medical History Past Medical History: Cancer, Heart Failure, Diabetes Mellitus, Dialysis, Eye Disorder, Hyperlipidemia, Hypertension, Myocardial Infarction ([place]), Prostate Disorder, Renal Disease, Sleep Apnea/CPAP/BIPAP Additional Past Medical History / Comment(s): CANCER-KIDNEY -LEFT, LEFT ARM SKIN CANCER. ENLARGED PROSTATE. HEMODIALYSIS M W F. USES C PAP AT NIGHT. RT CATARACT Last Myocardial Infarction Date:: 2005 History of Any Multi-Drug Resistant Organisms: None Reported Past Surgical History: Heart Catheterization With Stent, Orthopedic Surgery Additional Past Surgical History / Comment(s): REMOVAL LT KIDNEY R/T CANCER. HEART CATH WITH 3 STENTS 06/08/17. HEMODIALYSIS PORT INSERTION-06/09/17. LOOP RECORDER INSERTION AND REMOVAL. COLONOSCOPY. REMOVAL MELANOMA RT ARM. LT CATARACT SURGERY. 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 Past Anesthesia/Blood Transfusion Reactions: No Reported Reaction Date of Last Stent Placement:: 06/08/17 Past Psychological History: No Psychological Hx Reported Smoking Status: Former smoker Past Alcohol Use History: None Reported Past Drug Use History: None Reported - Past Family History Mother Family Medical History: Cancer Brother(s) Family Medical History: Cancer Medications and Allergies Home Medications Medication Instructions Recorded Confirmed Type Alirocumab [Praluent Pen] 150 mg SQ Q14D 06/19/17 06/23/17 History Allopurinol [Zyloprim] 100 mg PO DAILY 06/19/17 06/23/17 History Alpha Lipoic Acid 600 mg PO HS 06/19/17 06/23/17 History Aspirin EC [Ecotrin Low Dose] 81 mg PO DAILY 06/19/17 06/23/17 History B Complex W-C No.20/Folic Acid 1 tab PO DAILY 06/19/17 06/23/17 History [Renal Caps Softgel] Calcitriol 0.5 mcg PO MOWEFR 06/19/17 06/23/17 History Clopidogrel [Plavix] 75 mg PO DAILY 06/19/17 06/23/17 History Cyclobenzaprine [Flexeril] 10 mg PO HS 06/19/17 06/23/17 History Ergocalciferol (Vitamin D2) 50,000 unit PO SUTUTHSA 06/19/17 06/23/17 History [Vitamin D2] Furosemide [Lasix] 40 mg PO BID 06/19/17 06/23/17 History Humulin Pump 0 units INJ CONTINUOUS 06/19/17 06/23/17 History Isosorbide Mononitrate [Isosorbide 30 mg PO HS 06/19/17 06/23/17 History Mononitrate ER] Latanoprost [Xalatan 0.005%] 1 drop BOTH EYES HS 06/19/17 06/23/17 History Magnesium Oxide [Mag-Ox] 400 mg PO DAILY 06/19/17 06/23/17 History Metoprolol Succinate [Toprol Xl] 50 mg PO DAILY 06/19/17 06/23/17 History Metoprolol Succinate [Toprol Xl] 100 mg PO DAILY 06/19/17 06/23/17 History [place]-3 Acid Ethyl Esters [Lovaza] 2 gm PO BID 06/19/17 06/23/17 History Tamsulosin HCl [Flomax] 0.4 mg PO BID 06/19/17 06/23/17 History Warfarin [Coumadin] 5 mg PO SUMOWETHFR 06/19/17 06/23/17 History Warfarin [Coumadin] 7.5 mg PO TUSA 06/19/17 06/23/17 History Allergies Allergy/AdvReac Type Severity Reaction Status Date / Time codeine Allergy Unknown Verified 05/08/19 12:03 Childhood Penicillins Allergy Unknown Verified 05/08/19 12:03 Childhood Qypgjfz-Bva-Fos Reductase Allergy SEVERE Verified 05/08/19 12:03 Inhibitor MUSCLE CRAMPING Physical Exam Vitals: Vital Signs Temp Pulse Pulse Resp BP BP Pulse Ox 05/08/19 11:15 94 L 05/08/19 05:40 98.2 F 86 16 156/75 95 05/08/19 04:00 98.4 F 84 16 156/75 95 05/07/19 23:34 102.3 F H 100 20 152/82 95 05/07/19 23:06 98 20 180/104 96 05/07/19 22:29 101 F H 108 H 22 175/103 97 05/07/19 20:33 101.2 F H 99 20 136/68 97 05/07/19 19:50 102.3 F H 100 20 135/73 95 Intake and Output 05/07/19 05/08/19 05/08/19 22:59 06:59 14:59 Intake Total 240 Balance 240 Intake: Oral 240 Other: # Voids 1 Weight 136.078 kg 139.4 kg On examination is awake alert oriented is having his lunch without any difficult y HEENT exam no JVP neck is supple no facial asymmetry Lungs are clear to auscultation good air entry bilaterally Heart sounds are unremarkable for any murmur rub gallop abdomen soft nontender no rebound. Extremity exam reveals mild edema Neurologically awake alert oriented. Results - Lab Results Most recent lab results Calcium 9.4 mg/dL (8.4-10.2) 05/07/19 20:16 05/07/19 20:16 05/07/19 20:16 Assessment and Plan Plan: Impression 1. End-stage renal failure likely diabetic nephropathy on peritoneal dialysis for 3 years under . Patient said never had peritonitis before. Admitted with fever of 3 days' duration with awake symptoms of upper abdominal discomfort. One year of cough. PD exchanges are via cycler with 12.5 L with a last fill of 2.5 L which is included in the 12.5 L but additionally midday exchange of 2.5 L additionally. Ultrafiltration about 1.5-2 L, he has some urine output 2. Chronic cough 1-year-old likely postnasal drip. 3. Febrile illness probably viral syndrome. PD fluid is clear with 10 WBCs and 30 RBCs cultures are pending. Computed tomography scan of the abdomen [place] [address]. Influenza type a and B are negative and RSV is negative 4. Diabetes mellitus with complications. 5. Gallstone but liver function tests are unremarkable Recommendation 1. Resume peritoneal dialysis will give him 2.5 L 4 exchanges with 2500 mL 2.5%. 2. Car with antibiotics until cultures are negative. 3. Check lipase. 4. Check phosphorus.
[2019-05-08] MEDS: DIALYSIS (PERIT 2.5%) 2,500 ML 62.5 G/2,500 ML BAG INTRAPERIT SCH (12:57)
[2019-05-08] MEDS ORDERED: NITROGLYCERIN SL TABS 0.4 MG TAB SUBLINGUAL PRN (14:18)
[2019-05-08] MEDS ORDERED: DOCUSATE 100 MG CAP PO PRN (14:18)
[2019-05-08] MEDS: METOPROLOL SUCCINATE (ER) 50 MG TAB.ER.24H PO SCH (15:24)
[2019-05-08] MEDS: FUROSEMIDE 40 MG TAB PO SCH (15:24)
[2019-05-08] MEDS: HYDROcodone/APAP 5-325MG 1 EACH TAB PO PRN ×2 (15:24→22:28)
[2019-05-08 17:00] LABS: Glucose,Whole Blood 225 mg/dL (75-99)
[2019-05-08] MEDS: SEVELAMER 800 MG TAB PO SCH (17:00)
[2019-05-08] MEDS: LATANOPROST 0.005% OPHTH DROPS 2.5 ML BTL BOTH EYES SCH (20:27)
[2019-05-08] MEDS: [UNRECOGNIZED DRUG - OTHER] INJ SCH (20:28)
[2019-05-08] MEDS: CYCLOBENZAPRINE 10 MG TAB PO SCH (20:37)
[2019-05-08] MEDS: TAMSULOSIN 0.4 MG CAP.ER.24H PO SCH (20:37)
[2019-05-08] MEDS: CINACALCET 30 MG TAB PO SCH (20:37)
[2019-05-08] MEDS: OXcarbazepine 150 MG TAB PO SCH (20:38)
[2019-05-08] MEDS ORDERED: OMEGA ACID ETHYL ESTERS PO SCH (21:00)
[2019-05-08 21:11] LABS: Glucose,Whole Blood 124 mg/dL (75-99)
[2019-05-09] MEDS: DIALYSIS (PERIT 2.5%) 2,500 ML 62.5 G/2,500 ML BAG INTRAPERIT SCH ×2 (01:31→11:56)
[2019-05-09] MEDS: HYDROcodone/APAP 5-325MG 1 EACH TAB PO PRN ×2 (04:34→22:26)
[2019-05-09] MEDS ORDERED: VANCOMYCIN 2,000 MG in SODIUM CHLORIDE 0.9% 500 ML 500 ML IVPB ONE (06:00)
[2019-05-09 06:30] LABS: Glucose,Whole Blood 97 mg/dL (75-99)
[2019-05-09] MEDS: PANTOPRAZOLE 40 MG TABLET PO SCH (06:31)
[2019-05-09] MEDS: SEVELAMER 800 MG TAB PO SCH ×3 (06:31→17:52)
[2019-05-09] MEDS: DIALYSIS (PERIT 1.5%) 2,500 ML 37.5 G/2,500 ML BAG INTRAPERIT SCH ×2 (06:32→18:17)
[2019-05-09] MEDS: HYDROmorphone 0.5 MG/0.5 ML SYRINGE IVP PRN (07:34)
[2019-05-09 08:06] LABS: HCT 32.2 % (39.0-53.0); HGB 10.1 gm/dL (13.0-17.5); MCH 31.3 pg (25.0-35.0); MCHC 31.3 g/dL (31.0-37.0); Mean Platelet Volume 8.9; Platelet Count 258 k/uL (150-450); RBC 3.22 m/uL (4.30-5.90); RDW 13.4 % (11.5-15.5); WBC 20.8 k/uL (3.8-10.6)
[2019-05-09] MEDS: CALCITRIOL 0.25 MCG CAP PO SCH (08:41)
[2019-05-09] MEDS: ALLOPURINOL 100 MG TAB PO SCH (08:41)
[2019-05-09] MEDS: METOPROLOL SUCCINATE (ER) 50 MG TAB.ER.24H PO SCH ×2 (08:41→19:57)
[2019-05-09] MEDS: CLOPIDOGREL 75 MG TAB PO SCH (08:42)
[2019-05-09] MEDS: FUROSEMIDE 40 MG TAB PO SCH ×2 (08:42→17:52)
[2019-05-09] MEDS: OXcarbazepine 150 MG TAB PO SCH ×2 (08:45→19:57)
[2019-05-09] MEDS ORDERED: METOLAZONE 5 MG TAB PO PRN (09:00)
[2019-05-09] MEDS ORDERED: ALPHA LIPOIC ACID 600 MG PO SCH (09:00)
[2019-05-09 09:22] LABS: Calcium 9.1 mg/dL (8.4-10.2); Potassium 4.2 mmol/L (3.5-5.1)
--- NOTE | 2019-05-09 09:49 | XR ---
EXAMINATION TYPE: XR foot complete RT DATE OF EXAM: 05/09/2019 COMPARISON: 10/04/2009 HISTORY: Heel wound TECHNIQUE: Three views are submitted. FINDINGS: Severe arthropathy first MTP and DIP joint. Vascular calcifications are seen. Additional arthropathy is seen at the tarsometatarsal junction is hypertrophic change of the base of the fifth metatarsal. R emote trauma base of the fifth metatarsal with remote fracture suspected. No destructive changes. Sof t tissue edema and emphysema adjacent to the healed correlate for infection IMPRESSION: 1. Soft tissue emphysema and edema involving the heel with no destructive changes of the bone. No cor tical loss. Correlate for cellulitis..
--- NOTE | 2019-05-09 09:50 | P.PN ---
Subjective Patient is seen in follow-up for end-stage renal disease. He is maintained on peritoneal dialysis. Denies constipation. No vomiting or diarrhea. Oral intake is good. No chest pain or shortness of breath at this time. Vital signs are stable. General: The patient appeared well nourished and normally developed. HEENT: Head exam is unremarkable. Neck is without jugular venous distension. LUNGS: Lungs are clear to auscultation and percussion. Breath sounds decreased. HEART: Rate and Rhythm are regular. First and second heart sounds normal. No murmurs, rubs or gallops. ABDOMEN: Abdominal exam reveals normal bowel sounds. Non-tender and non- distended. No evidence of peritonitis. EXTREMITITES: No clubbing, cyanosis, or edema. Chronic changes noted. Objective - Vital Signs Vital signs: Vital Signs Temp 98.4 F 05/09/19 08:47 Pulse 99 05/09/19 08:47 Resp 20 05/09/19 08:47 BP 109/65 05/09/19 08:47 Pulse Ox 96 05/09/19 08:47 Intake & Output 05/08/19 05/09/19 05/09/19 18:59 06:59 18:59 Intake Total 1080 1080 240 Balance 1080 1080 240 Weight 125.6 kg Intake: Oral 1080 1080 240 Other: Voiding Method CAPD CAPD CAPD # Voids 0 0 # Bowel Movements 0 0 - Labs CBC & Chem 7: 05/09/19 06:35 05/09/19 06:35 Labs: Abnormal Lab Results - Last 24 Hours (Table) 05/08/19 05/08/19 05/08/19 Range/Units 11:56 16:56 21:10 WBC (3.8-10.6) k/uL RBC (4.30-5.90) m/uL Hgb (13.0-17.5) gm/dL Hct (39.0-53.0) % Sodium (137-145) mmol/L Chloride (98-107) mmol/L BUN (9-20) mg/dL Creatinine (0.66-1.25) mg/dL POC Glucose (mg/dL) 175 H 225 H 124 H (75-99) mg/dL C-Reactive Protein (<10.0) mg/L 05/09/19 05/09/19 05/09/19 Range/Units 06:31 06:35 06:35 WBC 20.8 H (3.8-10.6) k/uL RBC 3.22 L (4.30-5.90) m/uL Hgb 10.1 L (13.0-17.5) gm/dL Hct 32.2 L (39.0-53.0) % Sodium 132 L (137-145) mmol/L Chloride 94 L (98-107) mmol/L BUN 75 H (9-20) mg/dL Creatinine 8.00 H* (0.66-1.25) mg/dL POC Glucose (mg/dL) (75-99) mg/dL C-Reactive Protein 261.5 H (<10.0) mg/L Microbiology - Last 24 Hours (Table) 05/08/19 06:00 Gram Stain - Preliminary Peritoneal Fluid Body Fluid Culture - Preliminary 05/07/19 20:16 Blood Culture - Preliminary Blood No Growth after 24 hours Assessment and Plan Plan: Assessment: 1. End-stage renal disease maintained on peritoneal dialysis. 2. Chronic kidney disease mineral bone disease maintained on Renvela, Sensipar and calcitriol. 3. Diabetes mellitus. 4. Anemia of chronic kidney disease. Hemoglobin at goal. Plan: Maintain current peritoneal dialysis exchanges. No evidence of peritonitis as white cell count in the dialysate is 10 and dialysate is clear.
--- NOTE | 2019-05-09 10:24 | P.CONS ---
History of Present Illness - Reason for Consult Consult date: 05/08/19 peritonitis Requesting physician: Taran Tran - Chief Complaint Fever x 2 days and non healing ulcer to right heel x months - History of Present Illness Patient is a 69-year male with a past medical history significant for end-stage renal disease on peritoneal dialysis for the last few years patient presented to [facility] ER yesterday with a chief complaints of fever nausea and vomiting, the patient says he feels chilled over the last 2 to 3 days and took his temperature at home with a temperature of 102 F patient denies any URI symptom he did have a cough which has been chronic for him for almost a year denies any recent worsening of his cough the patient also complaining of nonhealing wound to his right heel with the patient has for couple of months and has been taking care of wound care center antibiotics on presentation to the hospital the patient did have a temperature of 102 F patient also have a white count of 20,000 patient UA has been negative and she still makes some urine peritoneal fluid was sent her white count has been only 10 influenza and RSV PCR has been negative patient did have a CT of abdominal pelvis which shows mild to moderate abdominal ascites gallstone unchanged patient did have a chest x-ray was negative for acute cardiopulmonary process patient has been started on vancomycin admitted to hospital infectious disease was consulted for further recommendation regarding antibiotic therapy. Review of Systems Positive point has been mentioned HPI rest of the systems are negative. Past Medical History Past Medical History: Cancer, Heart Failure, Diabetes Mellitus, Dialysis, Eye Disorder, Hyperlipidemia, Hypertension, Myocardial Infarction ([place]), Prostate Disorder, Renal Disease, Sleep Apnea/CPAP/BIPAP Additional Past Medical History / Comment(s): CANCER-KIDNEY -LEFT, LEFT ARM SKIN CANCER. ENLARGED PROSTATE. HEMODIALYSIS M W F. USES C PAP AT NIGHT. RT CATARACT Last Myocardial Infarction Date:: 2005 History of Any Multi-Drug Resistant Organisms: None Reported Past Surgical History: Heart Catheterization With Stent, Orthopedic Surgery Additional Past Surgical History / Comment(s): REMOVAL LT KIDNEY R/T CANCER. HEART CATH WITH 3 STENTS 06/08/17. HEMODIALYSIS PORT INSERTION-06/09/17. LOOP RECORDER INSERTION AND REMOVAL. COLONOSCOPY. REMOVAL MELANOMA RT ARM. LT CATARACT SURGERY. 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 Past Anesthesia/Blood Transfusion Reactions: No Reported Reaction Date of Last Stent Placement:: 06/08/17 Past Psychological History: No Psychological Hx Reported Smoking Status: Former smoker Past Alcohol Use History: None Reported Past Drug Use History: None Reported - Past Family History Mother Family Medical History: Cancer Brother(s) Family Medical History: Cancer Medications and Allergies Home Medications Medication Instructions Recorded Confirmed Type Alirocumab [Praluent Pen] 150 mg SQ Q14D 06/19/17 05/08/19 History Allopurinol [Zyloprim] 100 mg PO DAILY 06/19/17 05/08/19 History Alpha Lipoic Acid 600 mg PO DAILY 06/19/17 05/08/19 History Calcitriol 0.5 mcg PO DAILY 06/19/17 05/08/19 History Clopidogrel [Plavix] 75 mg PO DAILY 06/19/17 05/08/19 History Cyclobenzaprine [Flexeril] 10 mg PO HS 06/19/17 05/08/19 History Furosemide [Lasix] 40 mg PO BID 06/19/17 05/08/19 History Humulin Pump 0.1 units INJ CONTINUOUS 06/19/17 05/08/19 History Latanoprost [Xalatan 0.005%] 1 drop BOTH EYES HS 06/19/17 05/08/19 History Metoprolol Succinate [Toprol Xl] 50 mg PO BID 06/19/17 05/08/19 History [place]-3 Acid Ethyl Esters [Lovaza] 2 gm PO BID 06/19/17 05/08/19 History Tamsulosin HCl [Flomax] 0.8 mg PO HS 06/19/17 05/08/19 History Warfarin [Coumadin] 5 mg PO DAILY 06/19/17 05/08/19 History Cinacalcet HCl [Sensipar] 60 mg PO HS 05/08/19 05/08/19 History Docusate [Colace] 100 mg PO DAILY PRN 05/08/19 05/08/19 History HYDROcodone/APAP 5-325MG [[place] 1 tab PO Q6HR PRN 05/08/19 05/08/19 History 5-325] Metolazone [Zaroxolyn] 5 mg PO Q7DAYS PRN 05/08/19 05/08/19 History Nitroglycerin Sl Tabs [Nitrostat] 0.4 mg SUBLINGUAL Q5M PRN 05/08/19 05/08/19 History OXcarbazepine [Trileptal] 150 mg PO BID 05/08/19 05/08/19 History Pantoprazole [Protonix] 40 mg PO AC-BRKFST 05/08/19 05/08/19 History Sevelamer [Renvela] 2,400 mg PO AC-TID 05/08/19 05/08/19 History Triphrocaps 1 cap PO W/BRKFST 05/08/19 05/08/19 History Allergies Allergy/AdvReac Type Severity Reaction Status Date / Time codeine Allergy Unknown Verified 05/08/19 12:03 Childhood Penicillins Allergy Unknown Verified 05/08/19 12:03 Childhood Uqanpsr-Pox-Pdh Reductase Allergy SEVERE Verified 05/08/19 12:03 Inhibitor MUSCLE CRAMPING Physical Exam Vitals: Vital Signs Temp Pulse Pulse Resp BP BP BP 05/08/19 16:00 20 05/08/19 15:17 121 H 157/89 05/08/19 15:14 99.7 F H 115 H 20 156/100 05/08/19 12:00 99.6 F 107 H 14 171/74 05/08/19 11:15 05/08/19 08:00 98.8 F 107 H 14 157/81 05/08/19 05:40 98.2 F 86 16 156/75 05/08/19 04:00 98.4 F 84 16 156/75 05/07/19 23:34 102.3 F H 100 20 152/82 05/07/19 23:06 98 20 180/104 05/07/19 22:29 101 F H 108 H 22 175/103 05/07/19 20:33 101.2 F H 99 20 136/68 05/07/19 19:50 102.3 F H 100 20 135/73 Pulse Ox 05/08/19 16:00 05/08/19 15:17 05/08/19 15:14 92 L 05/08/19 12:00 93 L 05/08/19 11:15 94 L 05/08/19 08:00 96 05/08/19 05:40 95 05/08/19 04:00 95 05/07/19 23:34 95 05/07/19 23:06 96 05/07/19 22:29 97 05/07/19 20:33 97 05/07/19 19:50 95 Intake and Output 05/08/19 05/08/19 05/08/19 06:59 14:59 22:59 Intake Total 840 240 Balance 840 240 Intake: Oral 840 240 Other: Voiding Method CAPD CAPD # Voids 1 0 0 # Bowel Movements 0 Weight 139.4 kg GENERAL DESCRIPTION: Elderly male lying in bed, no distress. No tachypnea or accessory muscle of respiration use. HEENT: Shows Pallor , no scleral icterus. Oral mucous membrane is dry. No pharyngeal erythema or thrush NECK: Trachea central, no thyromegaly. LUNGS: Unlabored breathing. Clear to auscultation anteriorly. No wheeze or crackle. HEART: S1, S2, regular rate and rhythm. No loud murmur ABDOMEN: Soft, no tenderness , guarding or rigidity, no organomegaly EXTREMITIES: Right heel did have a necrotic wound with black eschar this of surrounding swelling minimal redness slightly warm to touch. SKIN: No rash, no masses palpable. NEUROLOGICAL: The patient is awake, alert, oriented x3, mood and affect normal. Results CBC & Chem 7: 05/09/19 06:35 05/09/19 06:35 Labs: Abnormal Lab Results - Last 24 Hours (Table) 05/07/19 05/07/19 05/07/19 Range/Units 20:15 20:16 20:16 WBC 20.8 H (3.8-10.6) k/uL RBC 3.61 L (4.30-5.90) m/uL Hgb 11.4 L (13.0-17.5) gm/dL Hct 35.2 L (39.0-53.0) % Neutrophils # 18.9 H (1.3-7.7) k/uL Lymphocytes # 0.6 L (1.0-4.8) k/uL PT 14.4 H (9.0-12.0) sec INR 1.4 H (<1.2) Sodium (137-145) mmol/L Chloride (98-107) mmol/L BUN (9-20) mg/dL Creatinine (0.66-1.25) mg/dL Glucose (74-99) mg/dL POC Glucose (mg/dL) (75-99) mg/dL Albumin (3.5-5.0) g/dL Urine Protein 2+ H (Negative) Urine Glucose (UA) 1+ H (Negative) Urine Blood Moderate H (Negative) Ur Leukocyte Esterase Trace H (Negative) Amorphous Sediment Rare H (None) /hpf Urine Bacteria Rare H (None) /hpf 05/07/19 05/08/19 05/08/19 Range/Units 20:16 06:05 11:56 WBC (3.8-10.6) k/uL RBC (4.30-5.90) m/uL Hgb (13.0-17.5) gm/dL Hct (39.0-53.0) % Neutrophils # (1.3-7.7) k/uL Lymphocytes # (1.0-4.8) k/uL PT (9.0-12.0) sec INR (<1.2) Sodium 132 L (137-145) mmol/L Chloride 94 L (98-107) mmol/L BUN 71 H (9-20) mg/dL Creatinine 7.08 H* (0.66-1.25) mg/dL Glucose 215 H (74-99) mg/dL POC Glucose (mg/dL) 43 L 175 H (75-99) mg/dL Albumin 3.4 L (3.5-5.0) g/dL Urine Protein (Negative) Urine Glucose (UA) (Negative) Urine Blood (Negative) Ur Leukocyte Esterase (Negative) Amorphous Sediment (None) /hpf Urine Bacteria (None) /hpf 05/08/19 Range/Units 16:56 WBC (3.8-10.6) k/uL RBC (4.30-5.90) m/uL Hgb (13.0-17.5) gm/dL Hct (39.0-53.0) % Neutrophils # (1.3-7.7) k/uL Lymphocytes # (1.0-4.8) k/uL PT (9.0-12.0) sec INR (<1.2) Sodium (137-145) mmol/L Chloride (98-107) mmol/L BUN (9-20) mg/dL Creatinine (0.66-1.25) mg/dL Glucose (74-99) mg/dL POC Glucose (mg/dL) 225 H (75-99) mg/dL Albumin (3.5-5.0) g/dL Urine Protein (Negative) Urine Glucose (UA) (Negative) Urine Blood (Negative) Ur Leukocyte Esterase (Negative) Amorphous Sediment (None) /hpf Urine Bacteria (None) /hpf Microbiology - Last 24 Hours (Table) 05/08/19 06:00 Body Fluid Culture - Preliminary Peritoneal Fluid Assessment and Plan Assessment: 1-patient presented to hospital with fever in this patient work-up so far including a chest x-ray that has been negative influenza and RSV PCR has been negative CT abdominal pelvis did not show any acute abnormality, peritoneal fluid cell count is low making it less likely peritonitis, in this patient did have a chronic nonhealing wound to the right heel with concern for possible cellulitis of the right lower extremity. (1) Fever Current Visit: Yes Status: Acute Code(s): R50.9 - FEVER, UNSPECIFIED SNOMED Code(s): 908595931 (2) Decubitus ulcer, heel, right, unstageable Current Visit: Yes Status: Acute Code(s): L89.610 - PRESSURE ULCER OF RIGHT HEEL, UNSTAGEABLE SNOMED Code(s): 577531951 (3) Cellulitis of right leg Current Visit: Yes Status: Acute Code(s): L03.115 - CELLULITIS OF RIGHT LOW ER LIMB SNOMED Code(s): 808885639 Plan: 1-vancomycin pharmacy to dose target trough of 15 while watching his kidney function and vancomycin trough closely 2-we will obtain x-rays of the right heel 3-recommend vascular surgery evaluation for possible debridement and deep culture We will follow on clinical condition and cultures to further adjust medication if needed Thank you for this consultation will follow this patient along with you Time with Patient: Greater than 30
[2019-05-09] MEDS ORDERED: CEFEPIME 2 GM in SODIUM CHLORIDE 0.9% 50 ML IVPB SCH (10:30)
[2019-05-09 11:41] LABS: Glucose,Whole Blood 121 mg/dL (75-99)
[2019-05-09] MEDS: CEFEPIME 2 GM in SODIUM CHLORIDE 0.9% 100 ML IVPB SCH (11:56)
[2019-05-09] MEDS ORDERED: INSULIN PUMP TARGET GLUCOSE 1 EACH MISC MISCELLANE PRN (11:57)
[2019-05-09] MEDS ORDERED: INSPUCOR MISCELLANE PRN (11:57)
[2019-05-09] MEDS ORDERED: INSULIN ASPART (NovoLOG) 100 UNIT/ML VIAL SQ PRN (11:57)
[2019-05-09] MEDS ORDERED: INSULIN PUMP BASAL RATES 1 EACH MISC MISCELLANE PRN (11:57)
[2019-05-09] MEDS ORDERED: INSULIN PUMP ACTIVE INSULIN 1 EACH MISC MISCELLANE PRN (11:57)
--- NOTE | 2019-05-09 15:39 | P.PN ---
Subjective Progress Note Date: 05/09/19 Principal diagnosis: 69-year-old pleasant male the with end-stage renal disease on peritoneal dialysis came in with complaints of fever chills abdominal pain, chest x-ray did not show pneumonia patient does urinate him a urinalysis did show trace bacteria but not impressive for UTI peritoneal fluid has only 10 nucleated cells did patient is admitted for sepsis secondary to peritonitis from the dialysis catheter patient is on IV vancomycin. Peritoneal fluid cultures were ordered. 05/09/2019 Patient is seen and evaluated and follow-up currently on peritoneal dialysis every 4 hours. Nephrology following. Patient states that he feels about the same as yesterday with no real improvements. Patient continues to have right lower quadrant abdominal pain and tenderness upon palpation. Objective - Vital Signs Vital signs: Vital Signs Temp 97.8 F 05/09/19 12:45 Pulse 96 05/09/19 12:45 Resp 20 05/09/19 12:45 BP 102/67 05/09/19 12:45 Pulse Ox 94 L 05/09/19 12:45 Intake & Output 05/08/19 05/09/19 05/09/19 18:59 06:59 18:59 Intake Total 1080 1080 480 Balance 1080 1080 480 Weight 125.6 kg Intake: Oral 1080 1080 480 Other: Voiding Method CAPD CAPD CAPD # Voids 0 0 # Bowel Movements 0 0 - Exam GENERAL: The patient is alert and oriented x3, not in any acute distress. Well developed, well nourished. Obese HEENT: Pupils are round and equally reacting to light. EOMI. No scleral icterus. No conjunctival pallor. Normocephalic, atraumatic. No pharyngeal erythema. No thyromegaly. CARDIOVASCULAR: S1 and S2 present. No murmurs, rubs, or gallops. PULMONARY: Chest is clear to auscultation, no wheezing or crackles. ABDOMEN: Distended, Tender upon palpation of the right lower quadrant normoactive bowel sounds. No palpable organomegaly. Patient has dialysis catheter in the right lower abdomen and an insulin pump on the left side MUSCULOSKELETAL: since his catheter in the right lower abdomen No joint swelling or deformity. EXTREMITIES: No cyanosis, clubbing, or pedal edema NEUROLOGICAL: Gross neurological examination did not reveal any focal deficits. SKIN: No rashes. Right lower extremity dressing of the guevara is dry and intact with bilateral dryness and scaling of the skin noted - Labs CBC & Chem 7: 05/09/19 06:35 05/09/19 06:35 Labs: Abnormal Lab Results - Last 24 Hours (Table) 05/08/19 05/08/19 05/09/19 Range/Units 16:56 21:10 06:31 WBC (3.8-10.6) k/uL RBC (4.30-5.90) m/uL Hgb (13.0-17.5) gm/dL Hct (39.0-53.0) % ESR 103 H (0-15) mm/hr Sodium (137-145) mmol/L Chloride (98-107) mmol/L BUN (9-20) mg/dL Creatinine (0.66-1.25) mg/dL POC Glucose (mg/dL) 225 H 124 H (75-99) mg/dL C-Reactive Protein (<10.0) mg/L 05/09/19 05/09/19 05/09/19 Range/Units 06:31 06:35 06:35 WBC 20.8 H (3.8-10.6) k/uL RBC 3.22 L (4.30-5.90) m/uL Hgb 10.1 L (13.0-17.5) gm/dL Hct 32.2 L (39.0-53.0) % ESR (0-15) mm/hr Sodium 132 L (137-145) mmol/L Chloride 94 L (98-107) mmol/L BUN 75 H (9-20) mg/dL Creatinine 8.00 H* (0.66-1.25) mg/dL POC Glucose (mg/dL) (75-99) mg/dL C-Reactive Protein 261.5 H (<10.0) mg/L 05/09/19 Range/Units 11:38 WBC (3.8-10.6) k/uL RBC (4.30-5.90) m/uL Hgb (13.0-17.5) gm/dL Hct (39.0-53.0) % ESR (0-15) mm/hr Sodium (137-145) mmol/L Chloride (98-107) mmol/L BUN (9-20) mg/dL Creatinine (0.66-1.25) mg/dL POC Glucose (mg/dL) 121 H (75-99) mg/dL C-Reactive Protein (<10.0) mg/L Microbiology - Last 24 Hours (Table) 05/08/19 06:00 Gram Stain - Preliminary Peritoneal Fluid Body Fluid Culture - Preliminary 05/07/19 20:16 Blood Culture - Preliminary Blood No Growth after 24 hours Assessment and Plan Assessment: -Peritonitis: Probably secondary to infected dialysis catheter patient on vancom ycin which will be continued. Blood and peritoneal fluid thus far remain negative. Infectious disease is following. -End-stage renal disease: Hemodialysis dependent. Nephrology following. Patient to continue with peritoneal dialysis every 4 hours -Congestive heart failure ejection fraction is not known patient is not in heart failure exacerbation at this time patient does have some ascites from peritonitis and end-stage renal disease unknown whether patient has systolic dysfunction and diastolic dysfunction -atrial fibrillation on anticoagulation with Coumadin and will be resumed today. Will repeat INR in the morning -Hyperlipidemia -Hypertension -Benign prostatic hypertrophy -Morbid obesity and sleep apnea patient uses CPAP machine which will be continued -type 2 diabetes mellitus with uncontrolled and elevated blood sugars patient will be resumed on his home regimen titrate depending on his insulin requirements
[2019-05-09] MEDS: [UNRECOGNIZED DRUG - OTHER] INJ SCH (16:33)
[2019-05-09] MEDS: INSULIN PUMP MEAL BOLUS 1 UNIT MISC MISCELLANE SCH ×3 (16:33→19:57)
[2019-05-09 16:49] LABS: Glucose,Whole Blood 196 mg/dL (75-99)
[2019-05-09] MEDS: CINACALCET 30 MG TAB PO SCH (19:56)
[2019-05-09] MEDS: LATANOPROST 0.005% OPHTH DROPS 2.5 ML BTL BOTH EYES SCH (19:57)
[2019-05-09] MEDS: CYCLOBENZAPRINE 10 MG TAB PO SCH (19:57)
[2019-05-09] MEDS: TAMSULOSIN 0.4 MG CAP.ER.24H PO SCH (19:57)
[2019-05-09] MEDS: WARFARIN 7.5 MG TAB PO SCH (20:32)
[2019-05-09 20:42] LABS: Glucose,Whole Blood 253 mg/dL (75-99)
--- NOTE | 2019-05-09 22:29 | PN ---
PROGRESS NOTE DATE OF SERVICE: 05/09/2019 REASON FOR FOLLOWUP: Fever, likely lower extremity cellulitis. INTERVAL HISTORY: The patient is currently afebrile. The patient has been breathing comfortably. Denies having any chest pain. He did have some chronic cough, but no worsening. No nausea, vomiting, abdominal pain or diarrhea. PHYSICAL EXAMINATION: Blood pressure 127/84 with a pulse of 101, temperature 97. He is 95% on room air. General description is an elderly male lying in bed in no distress. RESPIRATORY SYSTEM: Unlabored breathing with decreased breath sounds at the base. No wheeze. HEART: S1, S2. Regular rate and rhythm. ABDOMEN: Soft. No tenderness. Right leg with minimal swelling and redness. LABS: Hemoglobin is 10.1, white count . Creatinine 8.0. culture negative. Blood culture negative. DIAGNOSTIC IMPRESSION AND PLAN: Patient admitted to hospital with fever. Concern is likely for right heel wound infection with secondary cellulitis. In view of white count, cefepime will be added to vancomycin. Consider obtaining vascular surgery evaluation for debridement and deep culture. Continue supportive care. MMODL / IJN: [id number] /
[2019-05-10] MEDS: DIALYSIS (PERIT 2.5%) 2,500 ML 62.5 G/2,500 ML BAG INTRAPERIT SCH ×3 (00:34→23:25)
[2019-05-10] MEDS: DIALYSIS (PERIT 1.5%) 2,500 ML 37.5 G/2,500 ML BAG INTRAPERIT SCH ×2 (05:45→17:53)
[2019-05-10] MEDS: CLOPIDOGREL 75 MG TAB PO SCH (08:13)
[2019-05-10] MEDS: ALLOPURINOL 100 MG TAB PO SCH (08:13)
[2019-05-10] MEDS: METOPROLOL SUCCINATE (ER) 50 MG TAB.ER.24H PO SCH ×2 (08:13→20:33)
[2019-05-10] MEDS: OXcarbazepine 150 MG TAB PO SCH ×2 (08:13→20:33)
[2019-05-10] MEDS: PANTOPRAZOLE 40 MG TABLET PO SCH (08:13)
[2019-05-10] MEDS: SEVELAMER 800 MG TAB PO SCH ×3 (08:13→17:18)
[2019-05-10] MEDS: INSULIN PUMP MEAL BOLUS 1 UNIT MISC MISCELLANE SCH ×3 (08:13→18:14)
[2019-05-10] MEDS: FUROSEMIDE 40 MG TAB PO SCH ×2 (08:13→17:18)
[2019-05-10 08:22] LABS: HCT 31.3 % (39.0-53.0); HGB 9.9 gm/dL (13.0-17.5); MCH 31.3 pg (25.0-35.0); MCHC 31.6 g/dL (31.0-37.0); MCV 98.9 fL (80.0-100.0); Mean Platelet Volume 8.5; Platelet Count 244 k/uL (150-450); RBC 3.17 m/uL (4.30-5.90); RDW 13.4 % (11.5-15.5); WBC 16.8 k/uL (3.8-10.6)
[2019-05-10 08:32] LABS: INR 1.3 (<1.2); Prothrombin Time 12.8 sec (9.0-12.0)
[2019-05-10 08:39] LABS: Calcium 8.6 mg/dL (8.4-10.2); Potassium 4.1 mmol/L (3.5-5.1)
[2019-05-10 08:44] LABS: Vancomycin,Random 22.2 ug/mL
--- NOTE | 2019-05-10 09:04 | P.PN ---
Subjective Patient is seen in follow-up for end-stage renal disease. He is maintained on peritoneal dialysis. Denies constipation. Currently sitting. present at bedside. No issues with peritoneal dialysis. Vital signs are stable. General: The patient appeared well nourished and normally developed. HEENT: Head exam is unremarkable. Neck is without jugular venous distension. LUNGS: Lungs are clear to auscultation and percussion. Breath sounds decreased. HEART: Rate and Rhythm are regular. First and second heart sounds normal. No murmurs, rubs or gallops. ABDOMEN: Abdominal exam reveals normal bowel sounds. Non-tender and non- distended. No evidence of peritonitis. EXTREMITITES: No clubbing, cyanosis, or edema. Chronic changes noted. Objective - Vital Signs Vital signs: Vital Signs Temp 99.7 F H 05/10/19 04:40 Pulse 92 05/10/19 04:40 Resp 20 05/10/19 04:40 BP 96/56 05/10/19 04:40 Pulse Ox 93 L 05/10/19 04:40 Intake & Output 05/09/19 05/10/19 05/10/19 18:59 06:59 18:59 Intake Total 660 300 Balance 660 300 Weight 138.4 kg Intake: Oral 660 300 Other: Voiding Method CAPD CAPD # Voids 1 # Bowel Movements 0 - Labs CBC & Chem 7: 05/10/19 07:57 05/10/19 07:57 Labs: Abnormal Lab Results - Last 24 Hours (Table) 05/09/19 05/09/19 05/09/19 Range/Units 06:31 06:35 11:38 WBC (3.8-10.6) k/uL RBC (4.30-5.90) m/uL Hgb (13.0-17.5) gm/dL Hct (39.0-53.0) % ESR 103 H (0-15) mm/hr PT (9.0-12.0) sec INR (<1.2) Sodium 132 L (137-145) mmol/L Chloride 94 L (98-107) mmol/L BUN 75 H (9-20) mg/dL Creatinine 8.00 H* (0.66-1.25) mg/dL Glucose (74-99) mg/dL POC Glucose (mg/dL) 121 H (75-99) mg/dL 05/09/19 05/09/19 05/10/19 Range/Units 16:47 20:34 07:57 WBC 16.8 H (3.8-10.6) k/uL RBC 3.17 L (4.30-5.90) m/uL Hgb 9.9 L (13.0-17.5) gm/dL Hct 31.3 L (39.0-53.0) % ESR (0-15) mm/hr PT (9.0-12.0) sec INR (<1.2) Sodium (137-145) mmol/L Chloride (98-107) mmol/L BUN (9-20) mg/dL Creatinine (0.66-1.25) mg/dL Glucose (74-99) mg/dL POC Glucose (mg/dL) 196 H 253 H (75-99) mg/dL 05/10/19 05/10/19 Range/Units 07:57 07:57 WBC (3.8-10.6) k/uL RBC (4.30-5.90) m/uL Hgb (13.0-17.5) gm/dL Hct (39.0-53.0) % ESR (0-15) mm/hr PT 12.8 H (9.0-12.0) sec INR 1.3 H (<1.2) Sodium 131 L (137-145) mmol/L Chloride 93 L (98-107) mmol/L BUN 80 H (9-20) mg/dL Creatinine 8.19 H* (0.66-1.25) mg/dL Glucose 137 H (74-99) mg/dL POC Glucose (mg/dL) (75-99) mg/dL Microbiology - Last 24 Hours (Table) 05/07/19 20:16 Blood Culture - Preliminary Blood No Growth after 48 hours 05/08/19 06:00 Gram Stain - Preliminary Peritoneal Fluid Body Fluid Culture - Preliminary Assessment and Plan Plan: Assessment: 1. End-stage renal disease maintained on peritoneal dialysis. 2. Chronic kidney disease mineral bone disease maintained on Renvela, Sensipar and calcitriol. 3. Diabetes mellitus. 4. Anemia of chronic kidney disease. Rule out iron deficiency. 5. Right heel wound infection maintained on antibiotics. Infectious disease following. Plan: Maintain current peritoneal dialysis exchanges. No evidence of peritonitis as white cell count in the dialysate is 10 and dialysate is clear. Check iron studies.
--- NOTE | 2019-05-10 09:44 | CDI ---
Documentation Clarification Form Date: 05/10/2019 09:16:00 AM From: Selma Edgar RN, CCDS Admit Date: 05/08/2019 12:12:00 AM Patient Name: Wilmer Puente Visit Number: [id number] Discharge Date: ATTENTION: The Clinical Documentation Specialists (CDI) and [facility] Coding Staff appreciate your assistance in clarifying documentation. Please respond to the clarification below the line at the bottom and electronically sign. The CDI & [facility] Coding staff will review the response and follow-up if needed. Please note: Queries are made part of the Legal Health Record. If you have any questions, please contact the author of this message via ITS. Dr. Taran Tran Conflicting documentation has been found in the medical record: 05/08 Attending (Dr. Tran) "admitted for sepsis secondary to Peritonitis: Probably secondary to infected dialysis catheter". 05/09 Nephrology (Dr. Schmidt) " No evidence of peritonitis" 05/09 ID (Dr. Leon): Patient admitted to the hospital with fever, source likely right heel wound with secondary cellulitis. History/Risk Factors: ESRD oh peritoneal dialysis Clinical Indicators: 69-year-old male who came in on 05/06 with complaints of fever chills, abdominal pain. Peritoneal fluid cultures were ordered and are pending at this date. Vital signs on presentation 05/06: 135/73 100 20 102.3 95 % RA 05/06 labs: WBC 20.8, Neutrophils 18.9, Creatinine 7.08, Lactic acid 1.9; UA trace Leukocyte Esterase, wbc 4 Peritoneal fluid: Clear, Nucleated cells 10; Treatment: Vancomcyin 2000mg IV (Pharmacy to dose) Maxipime 2 gm IV Q48 HRS 05/06 Blood cultures-no growth after 48 hours 05/07 Peritoneal gram stain /culture: Pending Peritoneal dialysis exchange maintained per Nephrology orders In your opinion, what is the most clinically appropriate diagnosis for this patient? Peritonitis secondary to infected dialysis ruled in and treated Other explanation of clinical findings Unable to determine (no explanation for clinical findings) (Last Revision: May 2017) Peritonitis secondary to infected dialysis catheter ruled out MTDD
[2019-05-10] MEDS: CALCITRIOL 0.25 MCG CAP PO SCH (10:34)
[2019-05-10] MEDS ORDERED: LIDOCAINE 1% INJ 10MG/ML (20 ML MDV) SQ ONE ×2 (10:39→11:40)
[2019-05-10 12:01] LABS: Glucose,Whole Blood 155 mg/dL (75-99)
--- NOTE | 2019-05-10 12:19 | PCN ---
PROCEDURE NOTE PREOPERATIVE DIAGNOSIS: Infected wound right heel with devitalized tissue and scab with some fluctuation noted with some drainage. Measurement is 4 x 4 cm. PROCEDURE: Debridement of the wound down to subcutaneous tissue. The patient was seen, right heel was prepped and draped for pressure usual sterile manner; 1% lidocaine was infiltrated. Using knife, we excised the wound down to subcutaneous tissue. All the devitalized tissue was removed. The tissue was sent for deep culture and the wound was irrigated with saline. Santyl cream applied to the wound. Dressing applied. Patient tolerated the procedure well. PLAN: Change dressing daily with Santyl cream. MMODL / IJN: [id number] /
--- NOTE | 2019-05-10 12:19 | CONS ---
CONSULTATION This is a 69-year-old diabetic male, I was consulted for necrotic wound right heel and also patient has infected wound in the right groin. The patient had this necrotic heel in for the past 1 week and has been treated [facility] with Santyl cream and Aquacel Silver. MEDICAL HISTORY: History of diabetes, history of peripheral vascular disease, history of coronary artery disease, post coronary artery stent, history of COPD, history of obesity. PHYSICAL EXAMINATION: Patient was seen in his room. NECK: Supple. Trachea central. CHEST: Clear. ABDOMEN: Soft. Patient has a peritoneal dialysis. There is a 1 x 0.5 cm an infected superficial wound to the right groin area and femoral pulses are 1+, PT, DP not palpable. Patient has a brown induration on both lower extremity. The patient has a necrotic wound on the right heel, 4 x 4 cm with some drainage and foul odor, swelling started. PLAN: Debridement of the wound and deep tissue for culture and sensitivity. MMODL / IJN: [id number] /
[2019-05-10] MEDS: HYDROcodone/APAP 5-325MG 1 EACH TAB PO PRN (12:36)
[2019-05-10] MEDS: [UNRECOGNIZED DRUG - OTHER] INJ SCH (15:03)
--- NOTE | 2019-05-10 16:19 | P.PN ---
Subjective Progress Note Date: 05/10/19 Principal diagnosis: 69-year-old pleasant male the with end-stage renal disease on peritoneal dialysis came in with complaints of fever chills abdominal pain, chest x-ray did not show pneumonia patient does urinate him a urinalysis did show trace bacteria but not impressive for UTI peritoneal fluid has only 10 nucleated cells did patient is admitted for sepsis secondary to peritonitis from the dialysis catheter patient is on IV vancomycin. Peritoneal fluid cultures were ordered. 05/09/2019 Patient is seen and evaluated and follow-up currently on peritoneal dialysis every 4 hours. Nephrology following. Patient states that he feels about the same as yesterday with no real improvements. Patient continues to have right lower quadrant abdominal pain and tenderness upon palpation. 05/10/2019 Patient is seen today with no acute overnight issues. Patient continues to have some right lower abdominal quadrant tenderness due to a pre-existing ulcer that has been there. Patient remains on peritoneal dialysis. Nephrology following. Vascular surgery was consulted for possible debridement and wound culture analysis of the right heel ulcer. Family at the bedside updated. Patient remains on IV antibiotics in the form of cefepime and vancomycin and will continue at this time. Infectious Disease is following. White blood count trending down and is currently 16.8. Will repeat a.m. labs. Patient was reinitiated on Coumadin and current INR is 1.3. Will repeat INR as well. Objective - Vital Signs Vital signs: Vital Signs Temp 98.3 F 05/10/19 12:49 Pulse 86 05/10/19 12:49 Resp 24 05/10/19 12:49 BP 124/71 05/10/19 12:49 Pulse Ox 91 L 05/10/19 12:49 Intake & Output 05/09/19 05/10/19 05/10/19 18:59 06:59 18:59 Intake Total 660 300 Balance 660 300 Weight 138.4 kg Intake: Oral 660 300 Other: Voiding Method CAPD CAPD # Voids 1 1 # Bowel Movements 0 - Exam GENERAL: The patient is alert and oriented x3, not in any acute distress. Well developed, well nourished. Obese HEENT: Pupils are round and equally reacting to light. EOMI. No scleral icterus. No conjunctival pallor. Normocephalic, atraumatic. No pharyngeal erythema. No thyromegaly. CARDIOVASCULAR: S1 and S2 present. No murmurs, rubs, or gallops. PULMONARY: Chest is clear to auscultation, no wheezing or crackles. ABDOMEN: Distended, mildly Tender upon palpation of the right lower quadrant. Somewhat improved from yesterday. normoactive bowel sounds. No palpable organomegaly. Patient has dialysis catheter in the right lower abdomen and an insulin pump on the left side MUSCULOSKELETAL: since his catheter in the right lower abdomen No joint swelling or deformity. EXTREMITIES: No cyanosis, clubbing, or pedal edema, right heel dressing is dry and intact. NEUROLOGICAL: Gross neurological examination did not reveal any focal deficits. SKIN: No rashes. Right lower extremity dressing of the guevara is dry and intact w ith bilateral dryness and scaling of the skin noted - Labs CBC & Chem 7: 05/10/19 07:57 05/10/19 07:57 Labs: Abnormal Lab Results - Last 24 Hours (Table) 05/09/19 05/09/19 05/10/19 Range/Units 16:47 20:34 07:57 WBC 16.8 H (3.8-10.6) k/uL RBC 3.17 L (4.30-5.90) m/uL Hgb 9.9 L (13.0-17.5) gm/dL Hct 31.3 L (39.0-53.0) % PT (9.0-12.0) sec INR (<1.2) Sodium (137-145) mmol/L Chloride (98-107) mmol/L BUN (9-20) mg/dL Creatinine (0.66-1.25) mg/dL Glucose (74-99) mg/dL POC Glucose (mg/dL) 196 H 253 H (75-99) mg/dL 05/10/19 05/10/19 05/10/19 Range/Units 07:57 07:57 11:59 WBC (3.8-10.6) k/uL RBC (4.30-5.90) m/uL Hgb (13.0-17.5) gm/dL Hct (39.0-53.0) % PT 12.8 H (9.0-12.0) sec INR 1.3 H (<1.2) Sodium 131 L (137-145) mmol/L Chloride 93 L (98-107) mmol/L BUN 80 H (9-20) mg/dL Creatinine 8.19 H* (0.66-1.25) mg/dL Glucose 137 H (74-99) mg/dL POC Glucose (mg/dL) 155 H (75-99) mg/dL Microbiology - Last 24 Hours (Table) 05/08/19 06:00 Gram Stain - Preliminary Peritoneal Fluid Body Fluid Culture - Preliminary 05/07/19 20:16 Blood Culture - Preliminary Blood No Growth after 48 hours Assessment and Plan Assessment: -Possible Peritonitis secondary to infected dialysis catheter ruled out. Patient remains on vancomycin Patient was initiated on cefepime as well. Blood and peritoneal fluid continue to remain remain negative. Infectious disease is following. -End-stage renal disease: Hemodialysis dependent. Nephrology following. Patient to continue with peritoneal dialysis every 4 hours -Congestive heart failure ejection fraction is not known patient is not in heart failure exacerbation at this time patient does have some ascites from peritonitis and end-stage renal disease unknown whether patient has systolic dysfunction and diastolic dysfunction -atrial fibrillation on anticoagulation with Coumadin . Will repeat INR in the morning, current INR this morning was 1.3 -Hyperlipidemia -Hypertension -Benign prostatic hypertrophy -Morbid obesity and sleep apnea patient uses CPAP machine which will be continued -type 2 diabetes mellitus with uncontrolled and elevated blood sugars patient will be resumed on his home regimen titrate depending on his insulin requirements Plan: Patient awaiting consult with Dr. Vasquez for possible debridement of the right heel ulcer. Will await report. Patient will continue on IV anabiotic some the form of cefepime and vancomycin. Patient will also continue with peritoneal dialysis every 4 hours. Will discuss with case management and social work about possible discharge planning needs as patient may require IV antibiotics in the outpatient setting. Willl continue to monitor closely. Further recommendations to follow.
[2019-05-10 16:35] LABS: % Iron Saturation 12.05 (15.00-50.00)
[2019-05-10 16:54] LABS: Glucose,Whole Blood 139 mg/dL (75-99)
[2019-05-10] MEDS: WARFARIN 7.5 MG TAB PO SCH (17:18)
[2019-05-10] MEDS: CYCLOBENZAPRINE 10 MG TAB PO SCH (20:32)
[2019-05-10] MEDS: TAMSULOSIN 0.4 MG CAP.ER.24H PO SCH (20:32)
[2019-05-10] MEDS: CINACALCET 30 MG TAB PO SCH (20:32)
[2019-05-10] MEDS: LATANOPROST 0.005% OPHTH DROPS 2.5 ML BTL BOTH EYES SCH (20:33)
--- NOTE | 2019-05-10 23:08 | PN ---
PROGRESS NOTE DATE OF SERVICE: 05/10/2019 REASON FOR FOLLOW UP: Right heel wound with secondary cellulitis. INTERVAL HISTORY: The patient is currently afebrile, has been breathing comfortably. The patient did have a bedside debridement of the right heel wound by vascular surgery. Did not mention if the wound was taken down to the bone. The patient tolerated the procedure. Denies any chest pain, cough, abdominal pain. No diarrhea. PHYSICAL EXAMINATION: Blood pressure 135/64 with a pulse of 90, temperature 98.3. He is 96% on room air. General description is an elderly male lying in bed in no distress. Respiratory system: Unlabored breathing. Decreased breath sounds in the bases. No wheeze. Heart S1, S2. Regular rate and rhythm. Abdomen soft, no tenderness. Right leg is currently dressed up. No obvious drainage on the dressing. LABS: Hemoglobin is 9.1, white count 16.8, BUN of 18, creatinine is 8.19. Wound culture is currently pending. Blood cultures have been negative. DIAGNOSTIC IMPRESSION AND PLAN: Patient admitted to the hospital with fever, source likely right heel wound with secondary cellulitis. The patient is currently covered with cefepime and vancomycin to continue adjusting antibiotic based on the culture report. Continue supportive care. Local wound care with Santyl. MMODL / IJN: [id number] /
[2019-05-11] MEDS: HYDROcodone/APAP 5-325MG 1 EACH TAB PO PRN ×2 (00:50→13:21)
[2019-05-11] MEDS: INSULIN PUMP MEAL BOLUS 1 UNIT MISC MISCELLANE SCH ×4 (00:53→18:14)
[2019-05-11] MEDS: DIALYSIS (PERIT 1.5%) 2,500 ML 37.5 G/2,500 ML BAG INTRAPERIT SCH ×2 (06:14→18:14)
[2019-05-11 07:20] LABS: Glucose,Whole Blood 65 mg/dL (75-99)
[2019-05-11 07:39] LABS: Glucose,Whole Blood 74 mg/dL (75-99)
[2019-05-11] MEDS: ALLOPURINOL 100 MG TAB PO SCH (08:53)
[2019-05-11] MEDS: METOPROLOL SUCCINATE (ER) 50 MG TAB.ER.24H PO SCH ×2 (08:53→21:27)
[2019-05-11] MEDS: SEVELAMER 800 MG TAB PO SCH ×3 (08:53→17:38)
[2019-05-11] MEDS: CLOPIDOGREL 75 MG TAB PO SCH (08:53)
[2019-05-11] MEDS: PANTOPRAZOLE 40 MG TABLET PO SCH (08:53)
[2019-05-11] MEDS: FUROSEMIDE 40 MG TAB PO SCH ×2 (08:53→18:23)
[2019-05-11] MEDS: OXcarbazepine 150 MG TAB PO SCH ×2 (08:54→21:27)
[2019-05-11] MEDS: CALCITRIOL 0.25 MCG CAP PO SCH (08:54)
[2019-05-11 09:01] LABS: INR 1.4 (<1.2); Prothrombin Time 13.5 sec (9.0-12.0)
--- NOTE | 2019-05-11 09:22 | CDI ---
Documentation Clarification Form Date: 05/11/2019 08:59:19 AM From: Selma Edgar RN, CCDS Admit Date: 05/08/2019 12:12:00 AM Patient Name: Wilmer Puente Visit Number: [id number] Discharge Date: ATTENTION: The Clinical Documentation Specialists (CDI) and [facility] Coding Staff appreciate your assistance in clarifying documentation. Please respond to the clarification below the line at the bottom and electronically sign. The CDI & [facility] Coding staff will review the response and follow-up if needed. Please note: Queries are made part of the Legal Health Record. If you have any questions, please contact the author of this message via ITS. Dr. Taran Tran Atrial Fibrillation is documented in the H&P with on going treatment and further clarification for the type of atrial fibrillation if know is requested. History/Risk Factors: Atrial Fibrillation, hypertension, Diabetes Mellitus Clinical Indicators: 69-year-old male present to ED on 05/06 for evaluation of fever. EKG/telemetry: Atrial Fibrillation 95 bpm on 05/06 at 20:20 Treatment: Coumadin 7.5 mg PO Daily (held 05/06-05/07) restart 05/08 Monitor PT/INR In your professional opinion, can you please clarify the type of Atrial Fibrillation, if known? Chronic/Permanent Paroxysmal Persistent Other, please specify Unable to determine (Last Revision: May 2017) Unable to determine MTDD
--- NOTE | 2019-05-11 09:24 | P.PN ---
Subjective Patient is seen in follow-up for end-stage renal disease. He is maintained on peritoneal dialysis. Denies constipation. No active complaints. present at bedside. No issues with peritoneal dialysis. Vital signs are stable. General: The patient appeared well nourished and normally developed. HEENT: Head exam is unremarkable. Neck is without jugular venous distension. LUNGS: Lungs are clear to auscultation and percussion. Breath sounds decreased. HEART: Rate and Rhythm are regular. First and second heart sounds normal. No murmurs, rubs or gallops. ABDOMEN: Abdominal exam reveals normal bowel sounds. Non-tender and non- distended. No evidence of peritonitis. EXTREMITITES: No clubbing, cyanosis, or edema. Chronic changes noted. Objective - Vital Signs Vital signs: Vital Signs Temp 97.2 F L 05/11/19 04:35 Pulse 98 05/11/19 04:35 Resp 20 05/11/19 04:35 BP 136/85 05/11/19 04:35 Pulse Ox 92 L 05/11/19 04:35 Intake & Output 05/10/19 05/11/19 05/11/19 18:59 06:59 18:59 Intake Total 300 Balance 300 Weight 142.5 kg Intake: Oral 300 Other: Voiding Method CAPD # Voids 1 1 # Bowel Movements 0 - Labs CBC & Chem 7: 05/10/19 07:57 05/10/19 07:57 Labs: Abnormal Lab Results - Last 24 Hours (Table) 05/10/19 05/10/19 05/10/19 Range/Units 07:15 11:59 16:52 PT (9.0-12.0) sec INR (<1.2) POC Glucose (mg/dL) 155 H 139 H (75-99) mg/dL Iron 27 L (65-175) ug/dL TIBC 224 L (228-460) ug/dL % Saturation 12.05 L (15.00-50.00) Ferritin 1065.0 H (22.0-322.0) ng/mL 05/11/19 05/11/19 05/11/19 Range/Units 07:18 07:37 07:43 PT 13.5 H (9.0-12.0) sec INR 1.4 H (<1.2) POC Glucose (mg/dL) 65 L 74 L (75-99) mg/dL Iron (65-175) ug/dL TIBC (228-460) ug/dL % Saturation (15.00-50.00) Ferritin (22.0-322.0) ng/mL Microbiology - Last 24 Hours (Table) 05/10/19 15:01 Gram Stain - Preliminary Abdomen Tissue Culture - Preliminary 05/10/19 15:01 Anaerobic Culture - Preliminary Abdomen 05/07/19 20:16 Blood Culture - Preliminary Blood No Growth after 72 hours 05/10/19 11:40 Gram Stain - Preliminary Foot - Right Tissue Culture - Preliminary 05/10/19 11:40 Anaerobic Culture - Preliminary Foot - Right 05/08/19 06:00 Gram Stain - Preliminary Peritoneal Fluid Body Fluid Culture - Preliminary Assessment and Plan Plan: Assessment: 1. End-stage renal disease maintained on peritoneal dialysis. 2. Chronic kidney disease mineral bone disease maintained on Renvela, Sensipar and calcitriol. 3. Diabetes mellitus. 4. Anemia of chronic kidney disease. Iron deficiency noted. 5. Right heel wound infection maintained on antibiotics. Infectious disease following. 6. Hyponatremia secondary to chronic kidney disease. Plan: Maintain current peritoneal dialysis exchanges. No evidence of peritonitis as white cell count in the dialysate is 10 and dialysate is clear. IV iron today.
[2019-05-11 09:44] LABS: Basophils % (A) 0 %; Eosinophils # (A) 0.1 k/uL (0-0.7); Eosinophils % (A) 1 %; HCT 33.6 % (39.0-53.0); HGB 10.6 gm/dL (13.0-17.5); Lymphocytes # (A) 1.1 k/uL (1.0-4.8); Lymphocytes % (A) 7 %; MCH 31.2 pg (25.0-35.0); MCHC 31.6 g/dL (31.0-37.0); MCV 98.6 fL (80.0-100.0); Mean Platelet Volume 8.7; Monocytes # (A) 0.8 k/uL (0-1.0); Monocytes % (A) 5 %; Neutrophils # (A) 14.2 k/uL (1.3-7.7); Neutrophils % (A) 86 %; Platelet Count 270 k/uL (150-450); RDW 13.4 % (11.5-15.5); WBC 16.4 k/uL (3.8-10.6)
[2019-05-11 09:49] LABS: Calcium 8.9 mg/dL (8.4-10.2); Potassium 4.1 mmol/L (3.5-5.1)
--- NOTE | 2019-05-11 10:22 | PN ---
PROGRESS NOTE This patient is a 69-year-old gentleman who has infected wound right heel and also there is a wound on the groin area. The patient had a wound debridement done yesterday and also patient had a culture which showed gram-positive. Patient on IV antibiotic under care of Infectious Disease. PLAN: Plan is we will be using Santyl cream for the heel and Aquacel Silver for the right groin and if the patient goes home, we will follow in the wound clinic. MMODL / IJN: [id number] /
--- NOTE | 2019-05-11 11:54 | P.PN ---
Subjective Progress Note Date: 05/11/19 Principal diagnosis: 69-year-old pleasant male the with end-stage renal disease on peritoneal dialysis came in with complaints of fever chills abdominal pain, chest x-ray did not show pneumonia patient does urinate him a urinalysis did show trace bacteria but not impressive for UTI peritoneal fluid has only 10 nucleated cells did patient is admitted for sepsis secondary to peritonitis from the dialysis catheter patient is on IV vancomycin. Peritoneal fluid cultures were ordered. 05/09/2019 Patient is seen and evaluated and follow-up currently on peritoneal dialysis every 4 hours. Nephrology following. Patient states that he feels about the same as yesterday with no real improvements. Patient continues to have right lower quadrant abdominal pain and tenderness upon palpation. 05/10/2019 Patient is seen today with no acute overnight issues. Patient continues to have some right lower abdominal quadrant tenderness due to a pre-existing ulcer that has been there. Patient remains on peritoneal dialysis. Nephrology following. Vascular surgery was consulted for possible debridement and wound culture analysis of the right heel ulcer. Family at the bedside updated. Patient remains on IV antibiotics in the form of cefepime and vancomycin and will continue at this time. Infectious Disease is following. White blood count trending down and is currently 16.8. Will repeat a.m. labs. Patient was reinitiated on Coumadin and current INR is 1.3. Will repeat INR as well. 05/11/2019 Patient is seen in follow-up today stating continues to have some mild disco mfort in the right lower abdomen although is improved. Underwent debridement of the right heel wound with Dr. Vasquez yesterday. Cultures were sent and currently pending at this time. Cultures preliminary showing gram-negative bacilli and will await finalization. Infectious disease is following. Patient remains on cefepime and vancomycin and will continue at this time. Patient will continue with local wound care with Santyl cream and dressing changes daily. Nephrology also following. Patient remains on peritoneal dialysis every 4 hours. No reports of chest pain, shortness of breath, or palpitations. Patient is afebrile. No reports of nausea or vomiting and patient is tolerating diet. INR today is 1.3 and will continue with Coumadin and recheck labs in the morning. Objective - Vital Signs Vital signs: Vital Signs Temp 97.2 F L 05/11/19 04:35 Pulse 98 05/11/19 04:35 Resp 20 05/11/19 04:35 BP 136/85 05/11/19 04:35 Pulse Ox 92 L 05/11/19 04:35 Intake & Output 05/10/19 05/11/19 05/11/19 18:59 06:59 18:59 Intake Total 300 Balance 300 Weight 142.5 kg Intake: Oral 300 Other: Voiding Method CAPD # Voids 1 1 # Bowel Movements 0 - Exam GENERAL: The patient is alert and oriented x3, not in any acute distress. Well developed, well nourished. Obese HEENT: Pupils are round and equally reacting to light. EOMI. No scleral icterus. No conjunctival pallor. Normocephalic, atraumatic. No pharyngeal erythema. No thyromegaly. CARDIOVASCULAR: S1 and S2 present. No murmurs, rubs, or gallops. PULMONARY: Chest is clear to auscultation, no wheezing or crackles. ABDOMEN: Distended, mildly Tender upon palpation of the right lower quadrant. Somewhat improved from yesterday. normoactive bowel sounds. No palpable organomegaly. Patient has dialysis catheter in the right lower abdomen and an insulin pump on the left side MUSCULOSKELETAL: since his catheter in the right lower abdomen No joint swelling or deformity. EXTREMITIES: No cyanosis, clubbing, or pedal edema, right heel dressing is dry and intact status post debridement. NEUROLOGICAL: Gross neurological examination did not reveal any focal deficits. SKIN: No rashes. Right lower extremity dressing of the guevara is dry and intact with bilateral dryness and scaling of the skin noted - Labs CBC & Chem 7: 05/11/19 07:43 05/11/19 07:43 Labs: Abnormal Lab Results - Last 24 Hours (Table) 05/10/19 05/10/19 05/10/19 Range/Units 07:15 11:59 16:52 WBC (3.8-10.6) k/uL RBC (4.30-5.90) m/uL Hgb (13.0-17.5) gm/dL Hct (39.0-53.0) % Neutrophils # (1.3-7.7) k/uL PT (9.0-12.0) sec INR (<1.2) Sodium (137-145) mmol/L Chloride (98-107) mmol/L BUN (9-20) mg/dL Creatinine (0.66-1.25) mg/dL Glucose (74-99) mg/dL POC Glucose (mg/dL) 155 H 139 H (75-99) mg/dL Iron 27 L (65-175) ug/dL TIBC 224 L (228-460) ug/dL % Saturation 12.05 L (15.00-50.00) Ferritin 1065.0 H (22.0-322.0) ng/mL 05/11/19 05/11/19 05/11/19 Range/Units 07:18 07:37 07:43 WBC (3.8-10.6) k/uL RBC (4.30-5.90) m/uL Hgb (13.0-17.5) gm/dL Hct (39.0-53.0) % Neutrophils # (1.3-7.7) k/uL PT 13.5 H (9.0-12.0) sec INR 1.4 H (<1.2) Sodium (137-145) mmol/L Chloride (98-107) mmol/L BUN (9-20) mg/dL Creatinine (0.66-1.25) mg/dL Glucose (74-99) mg/dL POC Glucose (mg/dL) 65 L 74 L (75-99) mg/dL Iron (65-175) ug/dL TIBC (228-460) ug/dL % Saturation (15.00-50.00) Ferritin (22.0-322.0) ng/mL 05/11/19 05/11/19 Range/Units 07:43 07:43 WBC 16.4 H (3.8-10.6) k/uL RBC 3.40 L (4.30-5.90) m/uL Hgb 10.6 L (13.0-17.5) gm/dL Hct 33.6 L (39.0-53.0) % Neutrophils # 14.2 H (1.3-7.7) k/uL PT (9.0-12.0) sec INR (<1.2) Sodium 131 L (137-145) mmol/L Chloride 92 L (98-107) mmol/L BUN 81 H (9-20) mg/dL Creatinine 8.88 H* (0.66-1.25) mg/dL Glucose 67 L (74-99) mg/dL POC Glucose (mg/dL) (75-99) mg/dL Iron (65-175) ug/dL TIBC (228-460) ug/dL % Saturation (15.00-50.00) Ferritin (22.0-322.0) ng/mL Microbiology - Last 24 Hours (Table) 05/10/19 11:40 Gram Stain - Preliminary Foot - Right Tissue Culture - Preliminary Gram Neg Bacilli 05/08/19 06:00 Gram Stain - Preliminary Peritoneal Fluid Body Fluid Culture - Preliminary 05/10/19 15:01 Gram Stain - Preliminary Abdomen Tissue Culture - Preliminary 05/10/19 15:01 Anaerobic Culture - Preliminary Abdomen 05/07/19 20:16 Blood Culture - Preliminary Blood No Growth after 72 hours 05/10/19 11:40 Anaerobic Culture - Preliminary Foot - Right Assessment and Plan Assessment: -Possible Peritonitis secondary to infected dialysis catheter ruled out. Peritoneal fluid remains negative on culture. -Right heel ulcer; underwent debridement and awaiting for culture finalization. Patient remains on cefepime and vancomycin and will continue at this time. -End-stage renal disease: Hemodialysis dependent. Nephrology following. Patient to continue with peritoneal dialysis every 4 hours -Congestive heart failure ejection fraction is not known patient is not in heart failure exacerbation at this time patient does have some ascites from end-stage renal disease peritoneal dialysis dependent. unknown whether patient has systolic dysfunction and diastolic dysfunction -atrial fibrillation on anticoagulation with Coumadin . Will repeat INR in the morning, current INR this morning was 1.3 -Hyperlipidemia -Hypertension -Benign prostatic hypertrophy -Morbid obesity and sleep apnea patient uses CPAP machine which will be continued -type 2 diabetes mellitus with uncontrolled and elevated blood sugars patient will be resumed on his home regimen titrate depending on his insulin requirements Plan: Patient underwent debridement with Dr. Vasquez yesterday of the right heel ulcer. Patient will continue on local wound care with Edgar and currently awaiting culture finalization to determine if IV antibiotic therapy is necessary. Patient will continue on IV antibiotic some the form of cefepime and vancomycin. Patient will also continue with peritoneal dialysis every 4 hours. Will discuss with case management and social work about possible discharge planning needs as patient may require IV antibiotics in the outpatient setting. Willl continue to monitor closely. Further recommendations to follow.
[2019-05-11] MEDS: SODIUM FERRIC GLUCONAT-SUCROSE 125 MG in SODIUM CHLORIDE 0.9% 100 ML IVPB SCH (12:21)
[2019-05-11 12:30] LABS: Glucose,Whole Blood 175 mg/dL (75-99)
[2019-05-11] MEDS: DIALYSIS (PERIT 2.5%) 2,500 ML 62.5 G/2,500 ML BAG INTRAPERIT SCH (13:17)
[2019-05-11] MEDS: CEFEPIME 2 GM in SODIUM CHLORIDE 0.9% 100 ML IVPB SCH (14:04)
[2019-05-11] MEDS: [UNRECOGNIZED DRUG - OTHER] INJ SCH (14:28)
--- NOTE | 2019-05-11 16:53 | PN ---
PROGRESS NOTE DATE OF SERVICE: 05/11/2019. REASON FOR FOLLOWUP: Right heel wound with secondary cellulitis. INTERVAL HISTORY: The patient is currently afebrile. The patient is breathing comfortably. Denies having any chest pain or cough. No abdominal pain or pain to the right heel area. PHYSICAL EXAMINATION: Blood pressure 122/78 with a pulse of 84, temperature 98.1. He is 95% on CPAP. General description is an elderly male up in the chair in no distress. RESPIRATORY SYSTEM: Unlabored breathing with decreased breath sounds at the base. No wheeze. HEART: S1, S2. Regular rate and rhythm. ABDOMEN: Soft. No tenderness. LABS: Hemoglobin is 10.6, white count 16.4. Creatinine 8.88. Wound culture with Gram-negative bacilli. DIAGNOSTIC IMPRESSION AND PLAN: Patient with a right heel wound with secondary cellulitis. Culture now showing a Gram- negative. We are waiting for ID and sensitivity to determine his discharge antibiotic. Should be on IV. With no Gram-positive, vancomycin will be discontinued and we will monitor clinical course closely. Local care to continue per Surgery, currently with Edgar. MMODL / IJN: [id number] /
[2019-05-11 16:55] LABS: Glucose,Whole Blood 261 mg/dL (75-99)
[2019-05-11 17:25] LABS: Glucose,Whole Blood 238 mg/dL (75-99)
[2019-05-11] MEDS: WARFARIN 7.5 MG TAB PO SCH (18:23)
[2019-05-11] MEDS: TAMSULOSIN 0.4 MG CAP.ER.24H PO SCH (21:27)
[2019-05-11] MEDS: CYCLOBENZAPRINE 10 MG TAB PO SCH (21:27)
[2019-05-11] MEDS: CINACALCET 30 MG TAB PO SCH (21:28)
[2019-05-11] MEDS: LATANOPROST 0.005% OPHTH DROPS 2.5 ML BTL BOTH EYES SCH (21:30)
[2019-05-11 23:59] LABS: Glucose,Whole Blood 126 mg/dL (75-99)
[2019-05-12] MEDS: DIALYSIS (PERIT 2.5%) 2,500 ML 62.5 G/2,500 ML BAG INTRAPERIT SCH ×2 (00:06→12:20)
[2019-05-12] MEDS: INSULIN PUMP MEAL BOLUS 1 UNIT MISC MISCELLANE SCH ×5 (00:08→23:44)
[2019-05-12] MEDS: HYDROcodone/APAP 5-325MG 1 EACH TAB PO PRN ×2 (01:31→18:48)
[2019-05-12] MEDS: DIALYSIS (PERIT 1.5%) 2,500 ML 37.5 G/2,500 ML BAG INTRAPERIT SCH ×2 (05:56→18:09)
[2019-05-12] MEDS ORDERED: VANCOMYCIN 2,000 MG in SODIUM CHLORIDE 0.9% 500 ML 500 ML IVPB ONE (06:00)
[2019-05-12 07:43] LABS: Glucose,Whole Blood 58 mg/dL (75-99)
[2019-05-12 07:43] LABS: Glucose,Whole Blood 65 mg/dL (75-99)
[2019-05-12 07:58] LABS: INR 1.5 (<1.2)
[2019-05-12 08:09] LABS: Glucose,Whole Blood 92 mg/dL (75-99)
[2019-05-12] MEDS: SEVELAMER 800 MG TAB PO SCH ×3 (08:12→17:22)
[2019-05-12] MEDS: ALLOPURINOL 100 MG TAB PO SCH (08:12)
[2019-05-12] MEDS: FUROSEMIDE 40 MG TAB PO SCH ×2 (08:12→17:23)
[2019-05-12] MEDS: CLOPIDOGREL 75 MG TAB PO SCH (08:12)
[2019-05-12] MEDS: PANTOPRAZOLE 40 MG TABLET PO SCH (08:12)
[2019-05-12] MEDS: METOPROLOL SUCCINATE (ER) 50 MG TAB.ER.24H PO SCH ×2 (08:12→21:06)
[2019-05-12] MEDS: CALCITRIOL 0.25 MCG CAP PO SCH (08:13)
[2019-05-12] MEDS: OXcarbazepine 150 MG TAB PO SCH ×2 (08:14→21:06)
--- NOTE | 2019-05-12 09:06 | P.PN ---
Subjective Patient is seen in follow-up for end-stage renal disease. He is maintained on peritoneal dialysis. Denies constipation. No active complaints. present at bedside. No issues with peritoneal dialysis. Vital signs are stable. General: The patient appeared well nourished and normally developed. HEENT: Head exam is unremarkable. Neck is without jugular venous distension. LUNGS: Lungs are clear to auscultation and percussion. Breath sounds decreased. HEART: Rate and Rhythm are regular. First and second heart sounds normal. No murmurs, rubs or gallops. ABDOMEN: Abdominal exam reveals normal bowel sounds. Non-tender and non- distended. No evidence of peritonitis. EXTREMITITES: No clubbing, cyanosis, or edema. Chronic changes noted. Objective - Vital Signs Vital signs: Vital Signs Temp 98.9 F 05/12/19 06:30 Pulse 73 05/12/19 06:30 Resp 18 05/12/19 05:56 BP 110/64 05/12/19 06:30 Pulse Ox 18 L 05/12/19 06:30 Intake & Output 05/11/19 05/12/19 05/12/19 18:59 06:59 18:59 Weight 142.5 kg Other: Voiding Method CAPD # Voids 2 1 - Labs CBC & Chem 7: 05/11/19 07:43 05/11/19 07:43 Labs: Abnormal Lab Results - Last 24 Hours (Table) 05/11/19 05/11/19 05/11/19 Range/Units 07:43 07:43 12:29 WBC 16.4 H (3.8-10.6) k/uL RBC 3.40 L (4.30-5.90) m/uL Hgb 10.6 L (13.0-17.5) gm/dL Hct 33.6 L (39.0-53.0) % Neutrophils # 14.2 H (1.3-7.7) k/uL PT (9.0-12.0) sec INR (<1.2) Sodium 131 L (137-145) mmol/L Chloride 92 L (98-107) mmol/L BUN 81 H (9-20) mg/dL Creatinine 8.88 H* (0.66-1.25) mg/dL Glucose 67 L (74-99) mg/dL POC Glucose (mg/dL) 175 H (75-99) mg/dL 05/11/19 05/11/19 05/11/19 Range/Units 16:54 17:22 23:58 WBC (3.8-10.6) k/uL RBC (4.30-5.90) m/uL Hgb (13.0-17.5) gm/dL Hct (39.0-53.0) % Neutrophils # (1.3-7.7) k/uL PT (9.0-12.0) sec INR (<1.2) Sodium (137-145) mmol/L Chloride (98-107) mmol/L BUN (9-20) mg/dL Creatinine (0.66-1.25) mg/dL Glucose (74-99) mg/dL POC Glucose (mg/dL) 261 H 238 H 126 H (75-99) mg/dL 05/12/19 05/12/19 05/12/19 Range/Units 07:10 07:11 07:32 WBC (3.8-10.6) k/uL RBC (4.30-5.90) m/uL Hgb (13.0-17.5) gm/dL Hct (39.0-53.0) % Neutrophils # (1.3-7.7) k/uL PT 15.0 H (9.0-12.0) sec INR 1.5 H (<1.2) Sodium (137-145) mmol/L Chloride (98-107) mmol/L BUN (9-20) mg/dL Creatinine (0.66-1.25) mg/dL Glucose (74-99) mg/dL POC Glucose (mg/dL) 58 L 65 L (75-99) mg/dL Microbiology - Last 24 Hours (Table) 05/07/19 20:16 Blood Culture - Preliminary Blood No Growth after 96 hours 05/10/19 11:40 Gram Stain - Preliminary Foot - Right Tissue Culture - Preliminary Gram Neg Bacilli 05/08/19 06:00 Gram Stain - Preliminary Peritoneal Fluid Body Fluid Culture - Preliminary Assessment and Plan Plan: Assessment: 1. End-stage renal disease maintained on peritoneal dialysis. 2. Chronic kidney disease mineral bone disease maintained on Renvela, Sensipar and calcitriol. 3. Diabetes mellitus. 4. Anemia of chronic kidney disease. Iron deficiency noted. 5. Right heel wound infection maintained on antibiotics. Infectious disease following. Tissue culture positive for gram-negative bacilli. 6. Hyponatremia secondary to chronic kidney disease. Plan: Maintain current peritoneal dialysis exchanges. No evidence of peritonitis as white cell count in the dialysate is 10 and dialysate is clear. Second dose of IV iron today.
[2019-05-12] MEDS: SODIUM FERRIC GLUCONAT-SUCROSE 125 MG in SODIUM CHLORIDE 0.9% 100 ML IVPB SCH (10:15)
[2019-05-12 12:07] LABS: Glucose,Whole Blood 121 mg/dL (75-99)
--- NOTE | 2019-05-12 13:29 | P.PN ---
Subjective Progress Note Date: 05/12/19 Principal diagnosis: 69-year-old pleasant male the with end-stage renal disease on peritoneal dialysis came in with complaints of fever chills abdominal pain, chest x-ray did not show pneumonia patient does urinate him a urinalysis did show trace bacteria but not impressive for UTI peritoneal fluid has only 10 nucleated cells did patient is admitted for sepsis secondary to peritonitis from the dialysis catheter patient is on IV vancomycin. Peritoneal fluid cultures were ordered. 05/09/2019 Patient is seen and evaluated and follow-up currently on peritoneal dialysis every 4 hours. Nephrology following. Patient states that he feels about the same as yesterday with no real improvements. Patient continues to have right lower quadrant abdominal pain and tenderness upon palpation. 05/10/2019 Patient is seen today with no acute overnight issues. Patient continues to have some right lower abdominal quadrant tenderness due to a pre-existing ulcer that has been there. Patient remains on peritoneal dialysis. Nephrology following. Vascular surgery was consulted for possible debridement and wound culture analysis of the right heel ulcer. Family at the bedside updated. Patient remains on IV antibiotics in the form of cefepime and vancomycin and will continue at this time. Infectious Disease is following. White blood count trending down and is currently 16.8. Will repeat a.m. labs. Patient was reinitiated on Coumadin and current INR is 1.3. Will repeat INR as well. 05/11/2019 Patient is seen in follow-up today stating continues to have some mild disco mfort in the right lower abdomen although is improved. Underwent debridement of the right heel wound with Dr. Vasquez yesterday. Cultures were sent and currently pending at this time. Cultures preliminary showing gram-negative bacilli and will await finalization. Infectious disease is following. Patient remains on cefepime and vancomycin and will continue at this time. Patient will continue with local wound care with Santyl cream and dressing changes daily. Nephrology also following. Patient remains on peritoneal dialysis every 4 hours. No reports of chest pain, shortness of breath, or palpitations. Patient is afebrile. No reports of nausea or vomiting and patient is tolerating diet. INR today is 1.3 and will continue with Coumadin and recheck labs in the morning. 05/12/2019 Patient is seen and evaluated in follow-up today and is having some mild scrotal swelling most likely due to IV fluids. Patient remains on Lasix 40 mg twice daily and will continue at this time. Instructed the patient and nursing staff to elevate the scrotum on a cloth and continue to monitor. No reports of dysuria or retention. Patient makes small amounts of urine as he is peritoneal dialysis dependent. Cultures continue to show gram-negative bacilli and awaiting finalization. Infectious disease is following. Patient remains on IV cefepime and vancomycin has been discontinued. Discussed with the and patient about possible IV antibiotic therapy in the outpatient setting and is willing to take the patient to the infusion center for his antibiotic treatment. Awaiting finalization to determine the length of treatment and the need for possible midline for PICC line insertion. Currently no reports of chest pain, shortness of breath, or palpitations. Patient is afebrile. No reports of nausea or vomiting and patient is tolerating diet. Patient is on an insulin pump and is here to dose and treat according to ACHS readings. Patient's INR slightly improved and is 1.5 today and will continue with Coumadin with pharmacy to dose. He is currently on Coumadin 7.5 mg will repeat a.m. labs. Objective - Vital Signs Vital signs: Vital Signs Temp 98.9 F 05/12/19 06:30 Pulse 73 05/12/19 06:30 Resp 18 05/12/19 05:56 BP 110/64 05/12/19 06:30 Pulse Ox 18 L 05/12/19 06:30 Intake & Output 05/11/19 05/12/19 05/12/19 18:59 06:59 18:59 Intake Total 100 Balance 100 Weight 142.5 kg Intake: Intake, IV Titration 100 Amount Sodium Ferric Gluconat- 100 Sucrose 125 mg In Sodium Chloride 0.9% 100 ml @ 100 mls/hr IVPB DAILY [facility] Rx#:[id number] Other: Voiding Method CAPD # Voids 2 1 - Exam GENERAL: The patient is alert and oriented x3, not in any acute distress. Well developed, well nourished. Obese HEENT: Pupils are round and equally reacting to light. EOMI. No scleral icterus. No conjunctival pallor. Normocephalic, atraumatic. No pharyngeal erythema. No thyromegaly. CARDIOVASCULAR: S1 and S2 present. No murmurs, rubs, or gallops. PULMONARY: Chest is clear to auscultation, no wheezing or crackles. ABDOMEN: Distended, mildly Tender upon palpation of the right lower quadrant. Improved from yesterday. normoactive bowel sounds. No palpable organomegaly. Patient has dialysis catheter in the right lower abdomen and an insulin pump on the left side MUSCULOSKELETAL: since his catheter in the right lower abdomen No joint swelling or deformity. EXTREMITIES: No cyanosis, clubbing, or pedal edema, right heel dressing is dry and intact status post debridement. Nadir wrap to the right lower extremity also noted. NEUROLOGICAL: Gross neurological examination did not reveal any focal deficits. SKIN: No rashes. Right lower extremity dressing of the foot is dry and intact with bilateral dryness and scaling of the skin noted. Mild scrotal swelling noted with no erythema present. - Labs CBC & Chem 7: 05/11/19 07:43 05/11/19 07:43 Labs: Abnormal Lab Results - Last 24 Hours (Table) 05/11/19 05/11/19 05/11/19 Range/Units 16:54 17:22 23:58 PT (9.0-12.0) sec INR (<1.2) POC Glucose (mg/dL) 261 H 238 H 126 H (75-99) mg/dL 05/12/19 05/12/19 05/12/19 Range/Units 07:10 07:11 07:32 PT 15.0 H (9.0-12.0) sec INR 1.5 H (<1.2) POC Glucose (mg/dL) 58 L 65 L (75-99) mg/dL 05/12/19 Range/Units 11:52 PT (9.0-12.0) sec INR (<1.2) POC Glucose (mg/dL) 121 H (75-99) mg/dL Microbiology - Last 24 Hours (Table) 05/08/19 06:00 Gram Stain - Final Peritoneal Fluid Body Fluid Culture - Final 05/07/19 20:16 Blood Culture - Preliminary Blood No Growth after 96 hours 05/10/19 11:40 Gram Stain - Preliminary Foot - Right Tissue Culture - Preliminary Gram Neg Bacilli Assessment and Plan Assessment: -Possible Peritonitis secondary to infected dialysis catheter ruled out. Peritoneal fluid remains negative on culture. -Right heel ulcer; underwent debridement and awaiting for culture finalization. Patient remains on cefepime and vancomycin has been discontinued as the cultures preliminary are showing gram-negative bacilli. Infectious disease is following. -End-stage renal disease: Hemodialysis dependent. Nephrology following. Patient to continue with peritoneal dialysis every 4 hours -Congestive heart failure ejection fraction is not known patient is not in heart failure exacerbation at this time patient does have some ascites from end-stage renal disease peritoneal dialysis dependent. unknown whether patient has systolic dysfunction and diastolic dysfunction -atrial fibrillation on anticoagulation with Coumadin . Will repeat INR in the morning, current INR this morning was 1.5 -Hyperlipidemia -Hypertension -Benign prostatic hypertrophy -Morbid obesity and sleep apnea patient uses CPAP machine which will be continued -type 2 diabetes mellitus with uncontrolled and elevated blood sugars patient will be resumed on his home regimen titrate depending on his insulin requirements Plan: Patient to continue current medications, management, and symptomatic treatment. Patient will continue on local wound care with Edgar and currently awaiting culture finalization to determine IV antibiotic therapy. Patient will continue on IV antibiotic in the form of cefepime. Preliminary wound culture showing gram-negative bacilli and vancomycin was discontinued. Infectious disease is following. Patient will also continue with peritoneal dialysis every 4 hours. case management and social work following as patient may require IV antibiotics in the outpatient setting. Willl continue to monitor closely. Further recommendations to follow.
--- NOTE | 2019-05-12 16:02 | CDI ---
Documentation Clarification Form Date: 05/12/2019 03:28:00 PM From: Selma Edgar RN, CCDS Admit Date: 05/08/2019 12:12:00 AM Patient Name: Wilmer Puente Visit Number: [id number] Discharge Date: ATTENTION: The Clinical Documentation Specialists (CDI) and [facility] Coding Staff appreciate your assistance in clarifying documentation. Please respond to the clarification below the line at the bottom and electronically sign. The CDI & [facility] Coding staff will review the response and follow-up if needed. Please note: Queries are made part of the Legal Health Record. If you have any questions, please contact the author of this message via ITS. Dr. Taran Tran The patients principal diagnosis has not been clearly identified and requires clarification. 05/07 H&P: Sepsis secondary to peritonitis from the dialysis catheter. 05/09 progress note peritonitis secondary dialysis catheter ruled out. 05/07 ED (Dr. Leon) Decubitus ulcer heel, right unstageable. 05/09 Right heel wound with secondary Cellulitis of right leg He presented with the following: fever, nausea and vomiting. History/Risk factors: ESRD on Peritoneal dialysis, Diabetes Mellitus, Hypertension, Clinical Indicators: 69-year-old male was evaluated by Id on 05/07 for fever x2 days and chronic non healing ulcer to right heel x months. He has been treated in the wound care center with antibiotics. 05/08L Lab findings: WBC 20.8, HGB 10.1, HCT 32.2, Cr 8.00, C-Reactive protein 261.5 ED VS on 05/06: 135/73 100 102.3 95 % RA, 136/68 99 20 101.2 97 % RA Chest x-ray 05/06: No ac cardiopulmonary process Treatment: Monitor CBC, BUN, CR daily Right heel wound culture: Gram-negative bacilli Maxipime2 gm IV Q48 hr Flagyl 500 mg IV Q8hr 05/09 Other tx: Excisional debridement right heel Santyl creal for the right heel change Q 24 hrs Aquacel Silver for the right groin change Q 24hrs In your professional opinion, can you please clarify which diagnosis, after study, accounted for the patients presenting symptoms and was the reason chiefly responsible for the admission? Sepsis ruled in (Specify infection source) Sepsis ruled out Other reason for admission (specify) (Last Revision: May 2017) Patient does have sepsis but not secondary to peritonitis but secondary to skin infection MTDD
[2019-05-12] MEDS: [UNRECOGNIZED DRUG - OTHER] INJ SCH (16:32)
[2019-05-12 17:15] LABS: Glucose,Whole Blood 153 mg/dL (75-99)
[2019-05-12] MEDS: metroNIDAZOLE-NS PMX 500 MG in SALINE 1 100ML.BAG IVPB SCH (17:22)
[2019-05-12] MEDS: WARFARIN 7.5 MG TAB PO SCH (17:23)
[2019-05-12] MEDS: CINACALCET 30 MG TAB PO SCH (21:05)
[2019-05-12] MEDS: TAMSULOSIN 0.4 MG CAP.ER.24H PO SCH (21:06)
[2019-05-12] MEDS: CYCLOBENZAPRINE 10 MG TAB PO SCH (21:06)
[2019-05-12] MEDS: LATANOPROST 0.005% OPHTH DROPS 2.5 ML BTL BOTH EYES SCH (21:07)
--- NOTE | 2019-05-12 23:12 | PN ---
PROGRESS NOTE DATE OF SERVICE: 05/12/2019 REASON FOR FOLLOWUP: Right heel infected pressure ulcer with secondary cellulitis. INTERVAL HISTORY: The patient is currently afebrile. The patient has been breathing comfortably. Denies having any chest pain or shortness of breath or cough. No nausea, vomiting or abdominal pain. No pain to the right heel. PHYSICAL EXAMINATION: Blood pressure 138/70 with a pulse of 57, temperature 97.9. He is 96% on room air. General description is an elderly male up in the room in no distress. RESPIRATORY SYSTEM: Unlabored breathing. Clear to auscultation anteriorly. HEART: S1, S2. Regular rate and rhythm. ABDOMEN: Soft. No tenderness. Right heel did have a necrotic wound with some surrounding redness, foul-smelling drainage. LABS: Wound culture has been finalized with enterobacter. DIAGNOSTIC IMPRESSION AND PLAN: Patient with a right heel wound with secondary cellulitis. Still has significant amount of in view of the chronic wound, will obtain a bone scan to rule out any osteomyelitis. Antibiotic will be adjusted to Rocephin 2 grams daily and oral Flagyl and will monitor clinical course closely. MMODL / IJN: [id number] /
[2019-05-12 23:50] LABS: Glucose,Whole Blood 139 mg/dL (75-99)
[2019-05-13] MEDS: metroNIDAZOLE-NS PMX 500 MG in SALINE 1 100ML.BAG IVPB SCH ×3 (00:05→18:53)
[2019-05-13] MEDS: DIALYSIS (PERIT 2.5%) 2,500 ML 62.5 G/2,500 ML BAG INTRAPERIT SCH ×2 (00:12→11:28)
[2019-05-13 04:28] VITALS: PULSE 78
[2019-05-13] MEDS: DIALYSIS (PERIT 1.5%) 2,500 ML 37.5 G/2,500 ML BAG INTRAPERIT SCH ×2 (05:55→18:54)
[2019-05-13 07:11] LABS: Glucose,Whole Blood 100 mg/dL (75-99)
[2019-05-13] MEDS: PANTOPRAZOLE 40 MG TABLET PO SCH (07:46)
[2019-05-13] MEDS: METOPROLOL SUCCINATE (ER) 50 MG TAB.ER.24H PO SCH (07:46)
[2019-05-13] MEDS: ALLOPURINOL 100 MG TAB PO SCH (07:46)
[2019-05-13] MEDS: FUROSEMIDE 40 MG TAB PO SCH ×2 (07:47→18:54)
[2019-05-13] MEDS: HYDROcodone/APAP 5-325MG 1 EACH TAB PO PRN ×2 (07:47→18:09)
[2019-05-13] MEDS: CLOPIDOGREL 75 MG TAB PO SCH (07:47)
[2019-05-13] MEDS: SEVELAMER 800 MG TAB PO SCH ×3 (07:47→18:54)
[2019-05-13] MEDS: CINACALCET 30 MG TAB PO SCH (07:48)
[2019-05-13] MEDS: CALCITRIOL 0.25 MCG CAP PO SCH (07:49)
[2019-05-13] MEDS: INSULIN PUMP MEAL BOLUS 1 UNIT MISC MISCELLANE SCH ×3 (07:55→18:53)
[2019-05-13 09:03] LABS: Basophils # (A) 0.1 k/uL (0-0.2); Basophils % (A) 0 %; Eosinophils # (A) 0.2 k/uL (0-0.7); Eosinophils % (A) 1 %; HCT 32.7 % (39.0-53.0); HGB 10.4 gm/dL (13.0-17.5); Lymphocytes # (A) 1.4 k/uL (1.0-4.8); Lymphocytes % (A) 8 %; MCH 31.5 pg (25.0-35.0); MCHC 31.9 g/dL (31.0-37.0); MCV 98.7 fL (80.0-100.0); Mean Platelet Volume 8.7; Monocytes # (A) 0.7 k/uL (0-1.0); Monocytes % (A) 4 %; Neutrophils % (A) 85 %; Platelet Count 366 k/uL (150-450); RBC 3.31 m/uL (4.30-5.90); RDW 13.5 % (11.5-15.5); WBC 16.6 k/uL (3.8-10.6)
[2019-05-13 09:19] LABS: Calcium 8.5 mg/dL (8.4-10.2); Potassium 4.2 mmol/L (3.5-5.1)
[2019-05-13 09:20] LABS: INR 1.5 (<1.2)
[2019-05-13 09:48] LABS: C Reactive Protein 234.9 mg/L (<10.0)
[2019-05-13 11:06] VITALS: BMI 46.8
[2019-05-13] MEDS: SODIUM FERRIC GLUCONAT-SUCROSE 125 MG in SODIUM CHLORIDE 0.9% 100 ML IVPB SCH (11:24)
[2019-05-13 11:40] LABS: Glucose,Whole Blood 136 mg/dL (75-99)
[2019-05-13 13:24] VITALS: BP 150/78; RESP 18; TEMP 98.9
--- NOTE | 2019-05-13 14:36 | NM ---
EXAMINATION TYPE: NM bone 3 phase DATE OF EXAM: 05/13/2019 COMPARISON: Right foot x-ray May 09, 2019. HISTORY: Right heel open wound and pain with history of diabetes, rule out osteomyelitis. Triple phase bone scintigraphy was performed following the injection of 26.2 mCi Tc 99m MDP. Immedia te images and 4 hours post injection images acquired. Imaging is performed of the bilateral ankles an d feet. FINDINGS: Dynamic arterial phase images show increased uptake to the right ankle and foot versus the opposite l eft side. Soft tissue phase images show similar findings slightly more prominent over the posterior h indfoot. Delayed phase images do not show significant increased radiotracer uptake at the area of cli nical concern posterior hindfoot at level of calcaneus. Some areas of uptake throughout both feet on delayed phase images are felt to reflect product of degenerative change. IMPRESSION: Increased two phase radiotracer uptake to the right ankle and foot suggests soft tissue i nfection or cellulitis. No three-phase focal radiotracer uptake to suggest acute osteomyelitis.
--- NOTE | 2019-05-13 14:43 | P.PN ---
Subjective Progress Note Date: 05/13/19 Principal diagnosis: 69-year-old pleasant male the with end-stage renal disease on peritoneal dialysis came in with complaints of fever chills abdominal pain, chest x-ray did not show pneumonia patient does urinate him a urinalysis did show trace bacteria but not impressive for UTI peritoneal fluid has only 10 nucleated cells did patient is admitted for sepsis secondary to peritonitis from the dialysis catheter patient is on IV vancomycin. Peritoneal fluid cultures were ordered. 05/09/2019 Patient is seen and evaluated and follow-up currently on peritoneal dialysis every 4 hours. Nephrology following. Patient states that he feels about the same as yesterday with no real improvements. Patient continues to have right lower quadrant abdominal pain and tenderness upon palpation. 05/10/2019 Patient is seen today with no acute overnight issues. Patient continues to have some right lower abdominal quadrant tenderness due to a pre-existing ulcer that has been there. Patient remains on peritoneal dialysis. Nephrology following. Vascular surgery was consulted for possible debridement and wound culture analysis of the right heel ulcer. Family at the bedside updated. Patient remains on IV antibiotics in the form of cefepime and vancomycin and will continue at this time. Infectious Disease is following. White blood count trending down and is currently 16.8. Will repeat a.m. labs. Patient was reinitiated on Coumadin and current INR is 1.3. Will repeat INR as well. 05/11/2019 Patient is seen in follow-up today stating continues to have some mild disco mfort in the right lower abdomen although is improved. Underwent debridement of the right heel wound with Dr. Vasquez yesterday. Cultures were sent and currently pending at this time. Cultures preliminary showing gram-negative bacilli and will await finalization. Infectious disease is following. Patient remains on cefepime and vancomycin and will continue at this time. Patient will continue with local wound care with Santyl cream and dressing changes daily. Nephrology also following. Patient remains on peritoneal dialysis every 4 hours. No reports of chest pain, shortness of breath, or palpitations. Patient is afebrile. No reports of nausea or vomiting and patient is tolerating diet. INR today is 1.3 and will continue with Coumadin and recheck labs in the morning. 05/12/2019 Patient is seen and evaluated in follow-up today and is having some mild scrotal swelling most likely due to IV fluids. Patient remains on Lasix 40 mg twice daily and will continue at this time. Instructed the patient and nursing staff to elevate the scrotum on a cloth and continue to monitor. No reports of dysuria or retention. Patient makes small amounts of urine as he is peritoneal dialysis dependent. Cultures continue to show gram-negative bacilli and awaiting finalization. Infectious disease is following. Patient remains on IV cefepime and vancomycin has been discontinued. Discussed with the and patient about possible IV antibiotic therapy in the outpatient setting and is willing to take the patient to the infusion center for his antibiotic treatment. Awaiting finalization to determine the length of treatment and the need for possible midline for PICC line insertion. Currently no reports of chest pain, shortness of breath, or palpitations. Patient is afebrile. No reports of nausea or vomiting and patient is tolerating diet. Patient is on an insulin pump and is here to dose and treat according to ACHS readings. Patient's INR slightly improved and is 1.5 today and will continue with Coumadin with pharmacy to dose. He is currently on Coumadin 7.5 mg will repeat a.m. labs. 05/13/2019 Patient is seen and evaluated in follow-up today and states he feels much better. Patient is requesting to go home today. Patient continues on peritoneal dialysis every 4 hours and will continue at this time. Nephrology is following. Patient did receive a midline yesterday and currently remains on IV ceftriaxone and Flagyl at this time. Wound cultures finalized showing enterobacter cloacae which is sensitive to ceftriaxone. Infectious disease is following. Patient underwent bone scan at [facility] today and pending results. Currently no reports of chest pain, shortness of breath, or palpitations. Patient is afebrile. No reports of nausea or vomiting and patient is tolerating diet. at the bedside and verbalizing understanding of this treatment plan. Will await bone scan report. A prescription is provided to the patient for an offloading boot for the right heel as he just underwent deep tissue debridement of the right heel ulcer. Will continue to monitor closely. Objective - Vital Signs Vital signs: Vital Signs Temp 98.1 F 05/13/19 04:20 Pulse 78 05/13/19 04:20 Resp 24 05/13/19 04:20 BP 131/65 05/13/19 04:20 Pulse Ox 95 05/13/19 04:20 Intake & Output 05/12/19 05/13/19 05/13/19 18:59 06:59 18:59 Intake Total 100 Balance 100 Weight 144 kg 144 kg Intake: Intake, IV Titration 100 Amount Sodium Ferric Gluconat- 100 Sucrose 125 mg In Sodium Chloride 0.9% 100 ml @ 100 mls/hr IVPB DAILY [facility] Rx#:[id number] Other: Voiding Method CAPD # Voids 1 # Bowel Movements 1 - Exam GENERAL: The patient is alert and oriented x3, not in any acute distress. Well developed, well nourished. Obese HEENT: Pupils are round and equally reacting to light. EOMI. No scleral icterus. No conjunctival pallor. Normocephalic, atraumatic. No pharyngeal erythema. No thyromegaly. CARDIOVASCULAR: S1 and S2 present. No murmurs, rubs, or gallops. PULMONARY: Chest is clear to auscultation, no wheezing or crackles. ABDOMEN: Distended, mildly Tender upon palpation of the right lower quadrant. Improved from yesterday. normoactive bowel sounds. No palpable organomegaly. Patient has dialysis catheter in the right lower abdomen and an insulin pump on the left side MUSCULOSKELETAL: since his catheter in the right lower abdomen No joint swelling or deformity. EXTREMITIES: No cyanosis, clubbing, or pedal edema, right heel dressing is dry and intact status post debridement. Nadir wrap to the right lower extremity also noted. NEUROLOGICAL: Gross neurological examination did not reveal any focal deficits. SKIN: No rashes. Right lower extremity dressing of the foot is dry and intact with bilateral dryness and scaling of the skin noted. Mild scrotal swelling noted with no erythema present. Improved from yesterday. - Labs CBC & Chem 7: 05/13/19 07:43 05/13/19 07:43 Labs: Abnormal Lab Results - Last 24 Hours (Table) 05/12/19 05/12/19 05/13/19 Range/Units 17:00 23:48 07:09 WBC (3.8-10.6) k/uL RBC (4.30-5.90) m/uL Hgb (13.0-17.5) gm/dL Hct (39.0-53.0) % Neutrophils # (1.3-7.7) k/uL PT (9.0-12.0) sec INR (<1.2) Sodium (137-145) mmol/L Chloride (98-107) mmol/L BUN (9-20) mg/dL Creatinine (0.66-1.25) mg/dL POC Glucose (mg/dL) 153 H 139 H 100 H (75-99) mg/dL C-Reactive Protein (<10.0) mg/L 05/13/19 05/13/19 05/13/19 Range/Units 07:43 07:43 07:43 WBC 16.6 H (3.8-10.6) k/uL RBC 3.31 L (4.30-5.90) m/uL Hgb 10.4 L (13.0-17.5) gm/dL Hct 32.7 L (39.0-53.0) % Neutrophils # 14.0 H (1.3-7.7) k/uL PT 15.0 H (9.0-12.0) sec INR 1.5 H (<1.2) Sodium 131 L (137-145) mmol/L Chloride 91 L (98-107) mmol/L BUN 78 H (9-20) mg/dL Creatinine 7.81 H* (0.66-1.25) mg/dL POC Glucose (mg/dL) (75-99) mg/dL C-Reactive Protein 234.9 H (<10.0) mg/L 05/13/19 Range/Units 11:39 WBC (3.8-10.6) k/uL RBC (4.30-5.90) m/uL Hgb (13.0-17.5) gm/dL Hct (39.0-53.0) % Neutrophils # (1.3-7.7) k/uL PT (9.0-12.0) sec INR (<1.2) Sodium (137-145) mmol/L Chloride (98-107) mmol/L BUN (9-20) mg/dL Creatinine (0.66-1.25) mg/dL POC Glucose (mg/dL) 136 H (75-99) mg/dL C-Reactive Protein (<10.0) mg/L Microbiology - Last 24 Hours (Table) 05/07/19 20:16 Blood Culture - Preliminary Blood No Growth after 120 hours 05/10/19 15:01 Anaerobic Culture - Preliminary Abdomen 05/10/19 11:40 Anaerobic Culture - Preliminary Foot - Right 05/10/19 11:40 Gram Stain - Final Foot - Right Tissue Culture - Final Enterobacter cloacae 05/08/19 06:00 Gram Stain - Final Peritoneal Fluid Body Fluid Culture - Final Assessment and Plan Assessment: -Possible Peritonitis secondary to infected dialysis catheter ruled out. Peritoneal fluid remains negative on culture. -Sepsis ruled out -Right heel ulcer; underwent debridement. Cultures finalized showing Enterobacter Cloacae and patient remains on ceftriaxone. Infectious disease is following. -End-stage renal disease: Hemodialysis dependent. Nephrology following. Patient to continue with peritoneal dialysis every 4 hours -Congestive heart failure ejection fraction is not known patient is not in heart failure exacerbation at this time patient does have some ascites from end-stage renal disease peritoneal dialysis dependent. unknown whether patient has sy stolic dysfunction and diastolic dysfunction -atrial fibrillation on anticoagulation with Coumadin . Will repeat INR in the morning, current INR this morning was 1.5 -Hyperlipidemia -Hypertension -Benign prostatic hypertrophy -Morbid obesity and sleep apnea patient uses CPAP machine which will be continued -type 2 diabetes mellitus with uncontrolled and elevated blood sugars patient will be resumed on his home regimen titrate depending on his insulin requirements Plan: Patient to continue current medications, management, and symptomatic treatment. Patient will continue on local wound care with Santyl and culture finalized showing Enterobacter Cloacae . Patient remains on IV ceftriaxone and Flagyl at this time. Infectious disease is following. Patient will also continue with peritoneal dialysis every 4 hours. case management and social work following as patient may require IV antibiotics in the outpatient setting. Patient already received a midline for outpatient IV antibiotic therapy and awaiting nuclear medicine bone scan results. Willl continue to monitor closely. Further recommendations to follow. Possible discharge later today or within the next 24 hours.
[2019-05-13 16:35] LABS: Glucose,Whole Blood 133 mg/dL (75-99)
--- NOTE | 2019-05-13 16:47 | PN ---
PROGRESS NOTE DATE OF SERVICE: 05/13/2019. REASON FOR FOLLOW UP: Right heel wound and question of osteomyelitis. INTERVAL HISTORY: The patient is currently afebrile. Patient has been breathing comfortably. The patient denies having any chest pain, shortness of breath, cough, no nausea or vomiting, abdominal pain or pain to the right heel area. On examination, blood pressure 150/72. Pulse 70. Temperature 98.9. He is 95% on room air. General description is an elderly male up in the chair in no distress. Respiratory system: Unlabored breathing, clear to auscultation anteriorly. Heart: S1, S2 regular rate and rhythm. Abdomen soft, no tenderness. currently dressed up. No obvious drainage on the dressing. LABORATORY DATA: Bone scan has been negative for any osteomyelitis. Blood culture . Wound culture has been DIAGNOSTIC IMPRESSION AND PLAN: The patient with Enterobacter right heel wound secondary to cellulitis, antibiotic for two weeks along with oral Flagyl for two weeks. Local wound care with [facility] and close outpatient follow up. MMODL / IJN: [id number] /
[2019-05-13] MEDS: [UNRECOGNIZED DRUG - OTHER] INJ SCH (16:53)
--- NOTE | 2019-05-13 18:31 | P.PN ---
Subjective Patient is seen in follow-up for end-stage renal disease. He is maintained on peritoneal dialysis. Denies constipation. No active complaints. present at bedside. No issues with peritoneal dialysis. Had bone scan this AM. Vital signs are stable. General: The patient appeared well nourished and normally developed. HEENT: Head exam is unremarkable. Neck is without jugular venous distension. LUNGS: Lungs are clear to auscultation and percussion. Breath sounds decreased. HEART: Rate and Rhythm are regular. First and second heart sounds normal. No murmurs, rubs or gallops. ABDOMEN: Abdominal exam reveals normal bowel sounds. Non-tender and non- distended. No evidence of peritonitis. EXTREMITITES: No clubbing, cyanosis, or edema. Chronic changes noted. Objective - Vital Signs Vital signs: Vital Signs Temp 98.9 F 05/13/19 13:10 Pulse 78 05/13/19 13:10 Resp 18 05/13/19 13:10 BP 150/78 05/13/19 13:10 Pulse Ox 94 L 05/13/19 13:10 Intake & Output 05/12/19 05/13/19 05/13/19 18:59 06:59 18:59 Intake Total 100 300 Balance 100 300 Weight 144 kg 144 kg Intake: Intake, IV Titration 100 300 Amount Sodium Ferric Gluconat- 100 100 Sucrose 125 mg In Sodium Chloride 0.9% 100 ml @ 100 mls/hr IVPB DAILY [facility] Rx#:[id number] cefTRIAXone 2 gm In 100 Sodium Chloride 0.9% 50 ml @ 100 mls/hr IVPB Q24HR [facility] Rx#:[id number] metroNIDAZOLE-NS PMX 500 100 mg In Saline 1 100ml.bag @ 100 mls/hr IVPB Q8HR [facility] Rx#:[id number] Other: Voiding Method CAPD # Voids 1 # Bowel Movements 1 - Labs CBC & Chem 7: 05/13/19 07:43 05/13/19 07:43 Labs: Abnormal Lab Results - Last 24 Hours (Table) 05/12/19 05/13/19 05/13/19 Range/Units 23:48 07:09 07:43 WBC (3.8-10.6) k/uL RBC (4.30-5.90) m/uL Hgb (13.0-17.5) gm/dL Hct (39.0-53.0) % Neutrophils # (1.3-7.7) k/uL PT 15.0 H (9.0-12.0) sec INR 1.5 H (<1.2) Sodium (137-145) mmol/L Chloride (98-107) mmol/L BUN (9-20) mg/dL Creatinine (0.66-1.25) mg/dL POC Glucose (mg/dL) 139 H 100 H (75-99) mg/dL C-Reactive Protein (<10.0) mg/L 05/13/19 05/13/19 05/13/19 Range/Units 07:43 07:43 11:39 WBC 16.6 H (3.8-10.6) k/uL RBC 3.31 L (4.30-5.90) m/uL Hgb 10.4 L (13.0-17.5) gm/dL Hct 32.7 L (39.0-53.0) % Neutrophils # 14.0 H (1.3-7.7) k/uL PT (9.0-12.0) sec INR (<1.2) Sodium 131 L (137-145) mmol/L Chloride 91 L (98-107) mmol/L BUN 78 H (9-20) mg/dL Creatinine 7.81 H* (0.66-1.25) mg/dL POC Glucose (mg/dL) 136 H (75-99) mg/dL C-Reactive Protein 234.9 H (<10.0) mg/L 05/13/19 Range/Units 16:32 WBC (3.8-10.6) k/uL RBC (4.30-5.90) m/uL Hgb (13.0-17.5) gm/dL Hct (39.0-53.0) % Neutrophils # (1.3-7.7) k/uL PT (9.0-12.0) sec INR (<1.2) Sodium (137-145) mmol/L Chloride (98-107) mmol/L BUN (9-20) mg/dL Creatinine (0.66-1.25) mg/dL POC Glucose (mg/dL) 133 H (75-99) mg/dL C-Reactive Protein (<10.0) mg/L Microbiology - Last 24 Hours (Table) 05/07/19 20:16 Blood Culture - Preliminary Blood No Growth after 120 hours 05/10/19 15:01 Anaerobic Culture - Preliminary Abdomen 05/10/19 11:40 Anaerobic Culture - Preliminary Foot - Right Assessment and Plan Plan: Assessment: 1. End-stage renal disease maintained on peritoneal dialysis. 2. Chronic kidney disease mineral bone disease maintained on Renvela, Sensipar and calcitriol. 3. Diabetes mellitus. 4. Anemia of chronic kidney disease. Iron deficiency noted. 5. Right heel wound infection maintained on antibiotics. Infectious disease following. Tissue culture positive for gram-negative bacilli. Bone scan pending. 6. Hyponatremia secondary to chronic kidney disease. Plan: Maintain current peritoneal dialysis exchanges. No evidence of peritonitis as white cell count in the dialysate is 10 and dialysate is clear. Third dose of IV iron today.
[2019-05-13] MEDS: OXcarbazepine 150 MG TAB PO SCH (18:53)
[2019-05-13] MEDS: WARFARIN 7.5 MG TAB PO SCH (18:54)
--- NOTE | 2019-05-18 15:15 | P.DS ---
Providers Date of admission: 05/08/19 00:12 Expected date of discharge: 05/13/19 Attending physician: Kelechi Allan Consults: 05/07/19 23:18 Consult Physician Routine Consulting Provider: Hina Leon Consult Reason/Comments: Possible bacterial peritonitis Do you want consulting provider notified?: Yes 05/08/19 00:04 Consult Physician Routine Consulting Provider: Mary Ann Petersen Consult Reason/Comments: Peritoneal dialysis; possible peritonitis Do you want consulting provider notified?: Yes 05/10/19 09:38 Consult Physician Urgent Consulting Provider: Kentrell Vasquez Consult Reason/Comments: possible wound debridement/ right heel Do you want consulting provider notified?: Yes Primary care physician: Jean Gates DO Hospital Course: Final diagnosis -Possible Peritonitis secondary to infected dialysis catheter ruled out. -Sepsis ruled out -Right heel ulcer; underwent debridement. Cultures finalized showing Enterobacter Cloacae -End-stage renal disease: Hemodialysis dependent. -Congestive heart failure ejection fraction is not known patient is not in heart failure exacerbation at this time -atrial fibrillation -Hyperlipidemia -Hypertension -Benign prostatic hypertrophy -Morbid obesity and sleep apnea -type 2 diabetes mellitus with uncontrolled and elevated blood sugars Discharge disposition Patient is being discharged in a stable condition with guarded prognosis to home and will follow-up with wound care center in the outpatient setting. Patient will continue on IV antibiotic therapy per infectious disease and will be going to the [facility] for daily infusions. Time taken is 35 minutes. History of present illness This is a 69-year-old male who was recently admitted with end-stage renal disease on peritoneal dialysis who came in with complaints of fever and chills and abdominal pain and was being closely monitored. Patient was evaluated for sepsis and peritonitis although was ruled out. Patient did have right heel ulcer wound debridement with cultures finalizing showing Enterobacter Cloqcloacae and patient will be continued on IV antibiotic therapy in the outpatient setting of [place] at the infusion center. Patient did receive a midline and will continue to follow-up with infectious disease in the wound care center in the outpatient setting. Patient will continue on peritoneal dialysis as he is dependent on this. Currently no reports of chest pain, shortness of breath, or palpitations. Is afebrile. No reports of nausea or vomiting and patient is tolerating diet. During hospitalization patient did undergo a bone s can showing no osteomyelitis noted. Patient would like to go home today. Patient is being discharged today. On exam vital signs are stable. Temp is 98.9F, pulse is 78, respirations are 18, blood pressure is 150/78, oxygen saturation is 94% on room air. Cardio S1, S2 are present. Respiratory shows diminished breath sounds with no wheezing or rhonchi noted. Abdomen is soft, obese, nontender. Nervous system shows no focal deficits. Please refer to medication reconciliation sheet for a list of medications. Patient Condition at Discharge: Stable Plan - Discharge Summary Discharge Rx Participant: No New Discharge Prescriptions: New metroNIDAZOLE [Flagyl] 500 mg PO Q8HR #42 tab cefTRIAXone [Rocephin] 2,000 mg IVP Q24HR #14 vial Continue Alpha Lipoic Acid 600 mg PO DAILY Alirocumab [Praluent Pen] 150 mg SQ Q14D Latanoprost [Xalatan 0.005%] 1 drop BOTH EYES HS Calcitriol 0.5 mcg PO DAILY [place]-3 Acid Ethyl Esters [Lovaza] 2 gm PO BID Metoprolol Succinate [Toprol Xl] 50 mg PO BID Warfarin [Coumadin] 5 mg PO DAILY Tamsulosin HCl [Flomax] 0.8 mg PO HS Allopurinol [Zyloprim] 100 mg PO DAILY Furosemide [Lasix] 40 mg PO BID Cyclobenzaprine [Flexeril] 10 mg PO HS Clopidogrel [Plavix] 75 mg PO DAILY Humulin Pump 0.1 units INJ CONTINUOUS Sevelamer [Renvela] 2,400 mg PO AC-TID Metolazone [Zaroxolyn] 5 mg PO Q7DAYS PRN PRN Reason: HIGH BLOOD PRESSURE OR EDEMA Nitroglycerin Sl Tabs [Nitrostat] 0.4 mg SUBLINGUAL Q5M PRN PRN Reason: Chest Pain HYDROcodone/APAP 5-325MG [[place] 5-325] 1 tab PO Q6HR PRN PRN Reason: Pain Docusate [Colace] 100 mg PO DAILY PRN PRN Reason: Constipation OXcarbazepine [Trileptal] 150 mg PO BID Cinacalcet HCl [Sensipar] 60 mg PO HS Triphrocaps 1 cap PO W/BRKFST Pantoprazole [Protonix] 40 mg PO AC-BRKFST Discharge Medication List Alirocumab [Praluent Pen] 150 mg SQ Q14D 06/19/17 [History] Allopurinol [Zyloprim] 100 mg PO DAILY 06/19/17 [History] Alpha Lipoic Acid 600 mg PO DAILY 06/19/17 [History] Calcitriol 0.5 mcg PO DAILY 06/19/17 [History] Clopidogrel [Plavix] 75 mg PO DAILY 06/19/17 [History] Cyclobenzaprine [Flexeril] 10 mg PO HS 06/19/17 [History] Furosemide [Lasix] 40 mg PO BID 06/19/17 [History] Humulin Pump 0.1 units INJ CONTINUOUS 06/19/17 [History] Latanoprost [Xalatan 0.005%] 1 drop BOTH EYES HS 06/19/17 [History] Metoprolol Succinate [Toprol Xl] 50 mg PO BID 06/19/17 [History] [place]-3 Acid Ethyl Esters [Lovaza] 2 gm PO BID 06/19/17 [History] Tamsulosin HCl [Flomax] 0.8 mg PO HS 06/19/17 [History] Warfarin [Coumadin] 5 mg PO DAILY 06/19/17 [History] Cinacalcet HCl [Sensipar] 60 mg PO HS 05/08/19 [History] Docusate [Colace] 100 mg PO DAILY PRN 05/08/19 [History] HYDROcodone/APAP 5-325MG [Howard 5-325] 1 tab PO Q6HR PRN 05/08/19 [History] Metolazone [Zaroxolyn] 5 mg PO Q7DAYS PRN 05/08/19 [History] Nitroglycerin Sl Tabs [Nitrostat] 0.4 mg SUBLINGUAL Q5M PRN 05/08/19 [History] OXcarbazepine [Trileptal] 150 mg PO BID 05/08/19 [History] Pantoprazole [Protonix] 40 mg PO AC-BRKFST 05/08/19 [History] Sevelamer [Renvela] 2,400 mg PO AC-TID 05/08/19 [History] Triphrocaps 1 cap PO W/BRKFST 05/08/19 [History] cefTRIAXone [Rocephin] 2,000 mg IVP Q24HR #14 vial 05/13/19 [Rx] metroNIDAZOLE [Flagyl] 500 mg PO Q8HR #42 tab 05/13/19 [Rx] Follow up Appointment(s)/Referral(s): Jean Gates DO [Primary Care Provider] - 1-2 days [facility],Infusion [NON-STAFF] - Leroy Schmidt DO [STAFF PHYSICIAN] - 1 Week Kentrell Vasquez MD [STAFF PHYSICIAN] - 1 Week Hina Leon MD [STAFF PHYSICIAN] - 1 Week Ambulatory/Diagnostic Orders: Prothrombin Time INR [LAB.AMB] Time Frame: 1 Week, Location: None Selected Activity/Diet/Wound Care/Special Instructions: activity limited until follow up follow up with [facility] for IV abx treatments Thursday at Dr. Leon's office between [id number] continue with oral abx until finished follow up with primary upon discharge follow up with wound care clinic follow up with nephrology follow up with Dr. Vasquez in the outpatient setting continue with local wound care continue with coumadin dosing and recheck PT/INR weekly while on IV abx Discharge Disposition: HOME SELF-CARE
== END 2019-05-13 18:35 | disposition home or self-care (01) | DRG 853 ==
LOC: EC 19:40 → 3SCARD 05-08 00:12 → 6NMEDSUR 05-09 21:26
PROVIDERS: ADMIT Hospitalist; ATTEND Hospitalist
PROC: 0JBQ0ZZ Excision of Right Foot Subcutaneous Tissue and Fascia, Open Approach (ICD-10-PCS; principal; 2019-05-10)
DX: A41.9 Sepsis, unspecified organism (principal); N18.6 End stage renal disease; Z68.42 Body mass index [BMI] 45.0-49.9, adult; E87.1 Hypo-osmolality and hyponatremia; I13.2 Hypertensive heart and chronic kidney disease with heart failure and with stage 5 chronic kidney disease, or end stage renal disease; R18.8 Other ascites; L03.115 Cellulitis of right lower limb; E11.65 Type 2 diabetes mellitus with hyperglycemia; Y83.8 Other surgical procedures as the cause of abnormal reaction of the patient, or of later complication, without mention of misadventure at the time of the procedure; N40.1 Benign prostatic hyperplasia with lower urinary tract symptoms; N50.89 Other specified disorders of the male genital organs; B34.9 Viral infection, unspecified; D63.1 Anemia in chronic kidney disease; E11.22 Type 2 diabetes mellitus with diabetic chronic kidney disease; E11.51 Type 2 diabetes mellitus with diabetic peripheral angiopathy without gangrene; E61.1 Iron deficiency; E66.01 Morbid (severe) obesity due to excess calories; E11.40 Type 2 diabetes mellitus with diabetic neuropathy, unspecified; E78.5 Hyperlipidemia, unspecified; G47.30 Sleep apnea, unspecified; Z99.89 Dependence on other enabling machines and devices; I25.2 Old myocardial infarction; I48.91 Unspecified atrial fibrillation; I50.9 Heart failure, unspecified; J44.9 Chronic obstructive pulmonary disease, unspecified; K80.20 Calculus of gallbladder without cholecystitis without obstruction; L89.610 Pressure ulcer of right heel, unstageable; M89.8X9 Other specified disorders of bone, unspecified site; Z79.01 Long term (current) use of anticoagulants; Z79.02 Long term (current) use of antithrombotics/antiplatelets; Z79.4 Long term (current) use of insulin; Z79.82 Long term (current) use of aspirin; Z79.899 Other long term (current) drug therapy; Z85.820 Personal history of malignant melanoma of skin; Z87.891 Personal history of nicotine dependence; Z95.5 Presence of coronary angioplasty implant and graft; Z96.41 Presence of insulin pump (external) (internal); Z98.42 Cataract extraction status, left eye; Z99.2 Dependence on renal dialysis; H26.9 Unspecified cataract; Z88.5 Allergy status to narcotic agent; Z88.0 Allergy status to penicillin; Z88.8 Allergy status to other drugs, medicaments and biological substances; Z90.5 Acquired absence of kidney; Z85.528 Personal history of other malignant neoplasm of kidney
CPT/HCPCS: 36410; 36415; 71046; 74176; 76937; 78315; 80048; 80053; 80202; 81001; 82728; 83540; 83550; 83605; 83690; 85025; 85027; 85610; 85652; 85730; 86140; 87040; 87070; 87075; 87077; 87186; 87205; 87502; 87634; 89050; 93005; 94760; 96361; 96365; 96375; 99285

== ENCOUNTER → 2019-05-16 | Outpatient (CLI) | payer MEDICARE ==
--- NOTE | 2019-05-16 18:16 | CT ---
EXAMINATION TYPE: CT angio abd aorta w/Runoff DATE OF EXAM: 05/16/2019 COMPARISON: CT abdomen and pelvis 9 days ago. HISTORY: RIGHT LEG NON HEALING WOUND CT DLP: 2066.8 mGycm, Automated Exposure Control for Dose Reduction was Utilized. CONTRAST: CTA scan of the abdomen and pelvis with lower extremity runoff is performed without oral and with IV Contrast, patient injected with 100 mL of Isovue 370. Three-D reconstructed images are created by wor [employer]station and reviewed. FINDINGS: VASCULAR: Fairly small caliber abdominal aorta measuring between 1.7 and 1.5 cm in diameter along its entire course. No significant plaque or stenosis. Patent celiac artery, SMA, and right renal artery without significant stenosis. Patent REAGAN is identified. There is mild to moderate mixed plaque in the common iliac arteries without significant stenosis. Mild to moderate calcified plaque into the inter nal iliac arteries. Mild plaque in the external iliac arteries distally. Moderate peripheral mixed plaque in the right common femoral artery. Patent right deep femoral artery with moderate to severe peripheral calcified plaque. Right superficial femoral artery shows moderate to severe calcified plaque. Evaluation suboptimal due to calcified plaque and small vessels. Signifi cant stenosis is suspected in the mid SFA axial image 222. Additional significant stenosis felt prese nt in the mid to distal SFA at the focus of significant calcified plaque axial image 238. Popliteal a rtery shows more moderate calcified plaque till below the knee where there is more severe peripheral calcified plaque. Severe calcified plaque extends at the bifurcation and subsequent trifurcation. Are as of significant stenosis felt present at this level proximal tibia. There is satisfactory free flow in the mid leg and to flow in the distal leg with fairly severe calcified plaque throughout. Moderate to severe calcified plaque in left common femoral artery extending into superficial and deep femoral arteries. Moderate to severe peripheral calcified plaque in the deep femoral artery. Mild-to -moderate calcified plaque in the left superficial femoral artery. Moderate to severe calcified plaqu e in the mid to distal popliteal artery where there is more severe plaque at bifurcation and trifurca tion. Areas of significant stenosis are present at these levels. Satisfactory three-vessel flow mid l eg and two-vessel flow distal leg is present. LUNG BASES: Partial visualization of right-sided pacemaker wires. Partial visualization of right julian nary stent. LIVER/GB: There is 1.3 cm dependent calcified gallstone in gallbladder redemonstrated. Liver is low d ense with slightly lobulated peripheral contour, underlying cirrhosis is not excluded. Correlate clin ically. No early enhancing lesions seen. PANCREAS: No significant abnormality is seen. SPLEEN: A round 1.6 cm lesion medial to spleen is felt to reflect splenule. ADRENALS: There are fat and soft tissue dense masses in both adrenal glands right larger than left me asuring 3.1 x 2.4 cm axial image 49. Findings are consistent with bilateral myelolipomas. KIDNEYS: Surgical changes from left-sided nephrectomy. Mild right-sided perinephric fluid present pro duct of chronic medical renal disease but is nonspecific. BOWEL: Slightly redundant sigmoid colon redemonstrated. PROSTATE/SEMINAL VESICLES: Heterogeneous enlarged prostate gland consistent with BPH. LYMPH NODES: No greater than 1cm abdominal or pelvic lymph nodes are appreciated. OSSEOUS STRUCTURES: Multilevel spurring in the spine. EXTREMITIES: Moderate to severe osteoarthritic changes in both knees with greatest narrowing medial t ibiofemoral compartment bilaterally. Moderate axial joint space loss in both hips. Moderate to severe diffuse subcutaneous edema and soft tissue swelling bilaterally greatest below the knees. OTHER: Small amount of abdominal and pelvic ascites. Mild subcutaneous edema. There is peritoneal jim lysis catheter entering the right mid abdomen terminating in the anterior right upper pelvis. Small-t o-moderate bilateral scrotal fluid collection or hydroceles left greater than right. Extensive small vessel vascular calcification. IMPRESSION: 1. Small caliber aortoiliac system. Moderate to severe diffuse atherosclerotic change with most promi nent findings in the smaller peripheral vessels. Multifocal significant stenosis at and near bifurcat ion and trifurcation proximal tibial level and both lower extremities is present. There are additiona l significant stenosis thought present along the course of the right mid and distal superficial femor al artery. Further details as discussed above.
== END | disposition home or self-care (01) ==
LOC: RADCTMAIN 16:30
PROVIDERS: ATTEND Surgery Vascular Surgery
DX: I12.0 Hypertensive chronic kidney disease with stage 5 chronic kidney disease or end stage renal disease (principal); E11.22 Type 2 diabetes mellitus with diabetic chronic kidney disease; N18.6 End stage renal disease; E11.621 Type 2 diabetes mellitus with foot ulcer; I70.291 Other atherosclerosis of native arteries of extremities, right leg; I70.292 Other atherosclerosis of native arteries of extremities, left leg
CPT/HCPCS: 75635; Q9967

== ENCOUNTER → 2019-05-27 | Day surgery (SDC) | payer MEDICARE ==
[2019-05-27 10:35] VITALS: BP 132/59; PULSE 85; RESP 18; TEMP 97.9
[2019-05-27 10:42] LABS: Glucose,Whole Blood 130 mg/dL (75-99)
== END ==
LOC: CATHCVL 10:11
PROVIDERS: ATTEND Internal Medicine Infectious Disease
DX: Z45.2 Encounter for adjustment and management of vascular access device (principal); L03.115 Cellulitis of right lower limb; B96.89 Other specified bacterial agents as the cause of diseases classified elsewhere; I13.11 Hypertensive heart and chronic kidney disease without heart failure, with stage 5 chronic kidney disease, or end stage renal disease; E11.22 Type 2 diabetes mellitus with diabetic chronic kidney disease; N18.6 End stage renal disease; E78.5 Hyperlipidemia, unspecified; M19.90 Unspecified osteoarthritis, unspecified site; E11.40 Type 2 diabetes mellitus with diabetic neuropathy, unspecified; Z88.0 Allergy status to penicillin; Z88.5 Allergy status to narcotic agent; Z88.8 Allergy status to other drugs, medicaments and biological substances
CPT/HCPCS: 36410; 76937